=== PATIENT | male | born 1955 | race Caucasian/White ===

== ENCOUNTER 2017-05-16 08:46 | Inpatient (IN) ==
[2017-05-12 13:04] LABS: Appearance,Urine CLEAR; Bilirubin,Urine NEG (NEG); Color,Urine YELLOW; Glucose,Urine (UA) NEGATIVE (NEG); Leukocyte Esterase,Urine NEG /uL (NEG); Protein,Urine NEG (NEG); Specific Gravity,Urine 1.026 (1.000-1.035); Urine Blood NEG mg/dL (<0.03); Urobilinogen,Urine NEG (NEG)
[2017-05-12 14:02] LABS: Blood Urea Nitrogen 24 mg/dl (8-23)
[2017-05-12 14:07] LABS: Basophils # (Auto) 0 K/mcL (0.0-0.3); Basophils % (Auto) 0.2 % (0.0-2.0); Eosinophils # (Auto) 0 K/mcL (0.0-0.7); Eosinophils % (Auto) 0.4 % (0.0-7.0); Granulocytes % (Auto) 88.6 % (38.0-78.0); Lymphocytes % (Auto) 8.7 % (15.5-49.0); Mean Cell Volume 86.1 fL (80.0-100.0); Mean Corpuscular HGB Conc 33.2 g/dL (31.0-36.0); Mean Corpuscular Hemoglobin 28.5 pg (26.0-34.0); Monocytes # (Auto) 0.2 K/mcL (0.1-0.9); Monocytes % (Auto) 2.1 % (1.0-12.0); Platelet Count 224 K/mcL (140-440); RBC 4.74 M/mcL (4.50-5.90); Red Cell Distribution Width 12.7 % (11.5-14.5)
[~2017-05-16 08:46] MED LIST: ACETAMINOPHEN 500 MG TABLET PO SCH; CELECOXIB 200 MG CAPSULE PO SCH; KETOROLAC 30 MG, ROPIVACAINE HCL/PF 49.5 ML, EPINEPHrine 0.5 MG, 0.9 % SODIUM CHLORIDE ... IJ SCH; PREGABALIN 75 MG CAPSULE PO SCH; ceFAZolin 1 GM VIAL IV SCH; oxyCODONE 10 MG TAB.ER.12H PO SCH
[2017-05-16] MEDS ORDERED: ePHEDrine 50 MG/ML AMPUL IV ONE (14:25)
[2017-05-16] MEDS ORDERED: PROPOFOL 200 MG/20 ML VIAL IV ONE (14:25)
[2017-05-16] MEDS ORDERED: KETOROLAC 30 MG/ML VIAL IV ONE (14:25)
[2017-05-16] MEDS ORDERED: ONDANSETRON 4 MG/2 ML VIAL IV ONE (14:25)
[2017-05-16] MEDS ORDERED: GLYCOPYRROLATE 0.2 MG/ML VIAL IV ONE (14:25)
[2017-05-16] MEDS ORDERED: LIDOCAINE HCL/PF 100 MG/5 ML SYRINGE IV ONE (14:25)
[2017-05-16] MEDS ORDERED: DEXAMETHASONE 10 MG/ML VIAL IV ONE (14:25)
[2017-05-16] MEDS ORDERED: BUPIVACAINE W/EPI 0.5% 50 ML VIAL IJ ONE (14:25)
[2017-05-16] MEDS ORDERED: KETAMINE 100 MG/ML ML IV ONE (14:25)
[2017-05-16] MEDS ORDERED: TRANEXAMIC ACID 1,000 MG/10 ML VIAL IV ONE (14:25)
[2017-05-16] MEDS ORDERED: MIDAZOLAM 2 MG/2 ML VIAL IV ONE (14:25)
[2017-05-16] MEDS ORDERED: METHOCARBAMOL 1,000 MG/10 ML VIAL IV PRN (14:52)
[2017-05-16] MEDS ORDERED: FLUMAZENIL 0.1 MG/ML ML IV PRN (14:52)
[2017-05-16] MEDS ORDERED: LACTATED RINGERS 250 ML IV PRN (14:52)
[2017-05-16] MEDS ORDERED: NALOXONE HCL 0.4 MG/ML VIAL IV PRN (14:52)
[2017-05-16] MEDS ORDERED: ONDANSETRON 4 MG/2 ML VIAL IV PRN ×2 (14:52→15:55)
[2017-05-16] MEDS ORDERED: PROMETHAZINE 25 MG/ML VIAL IV PRN (14:52)
[2017-05-16] MEDS ORDERED: IPRATROPIUM/ALBUTEROL 3 ML AMPUL.NEB NEB PRN (14:52)
[2017-05-16] MEDS ORDERED: BENZOCAINE/MENTHOL 1 LOZENGE PO PRN ×2 (14:52→15:55)
[2017-05-16] MEDS ORDERED: LACTATED RINGERS 1,000 ML IV SCH (15:00)
[2017-05-16] MEDS ORDERED: BISACODYL 10 MG SUPP.RECT PR PRN (15:55)
[2017-05-16] MEDS ORDERED: HYDROmorphone 2 MG/ML VIAL IV PRN (15:55)
[2017-05-16] MEDS ORDERED: FLEETS ADULT ENEMA PR PRN (15:55)
[2017-05-16] MEDS ORDERED: TRANEXAMIC ACID 1,000 MG/10 ML VIAL IV SCH (15:55)
[2017-05-16] MEDS ORDERED: ACETAMINOPHEN 325 MG TABLET PO PRN (15:55)
[2017-05-16] MEDS ORDERED: POLYETHYLENE GLYCOL 3350 17 GM PACKET PO PRN (15:55)
[2017-05-16] MEDS ORDERED: MAGNESIUM HYDROXIDE 30 ML ORAL.SUSP PO PRN (15:55)
--- NOTE | 2017-05-16 16:02 | Brief Operative Note ---
Date of procedure: 05/16/17 Pre-op diagnosis: Left knee djd Post-op diagnosis: same Procedure: left tka robotic Grafts/Implants: Yes Anesthesia: DAVID Surgeon: Jaylan Villalpando Automation And Controls Manager: Onesimo Downs Estimated blood loss (cc): 50 Tourniquet Time (Minutes): 59 Specimens Removed/Pathology: none sent Condition: stable Disposition: PACU
[2017-05-16] MEDS: fentaNYL 100 MCG/2 ML VIAL IV PRN ×3 (16:40→16:59)
[2017-05-16] MEDS ORDERED: fentaNYL 100 MCG/2 ML VIAL IV ONE (16:48)
[2017-05-16] MEDS: 0.45 % SODIUM CHLORIDE 1,000 ML IV SCH (17:28)
[2017-05-16] MEDS: KETOROLAC 15 MG/ML VIAL IV SCH (17:32)
--- NOTE | 2017-05-16 17:36 | XRay Report ---
CLINICAL INFORMATION: Reason for Exam:Post-Op Total Knee COMPARISON: None. FINDINGS: Total knee prostheses is anatomically aligned. No osseous abnormality. Periarticular gas and soft tissue are seen - as expected IMPRESSION: Negative Interpreted and Authenticated by: Chay Lino 05/16/17
[2017-05-16] MEDS: HYDROcodone/APAP 10/325MG TABLET PO PRN (19:24)
[2017-05-16] MEDS ORDERED: QUEtiapine 25 MG TABLET PO SCH (21:00)
[2017-05-16] MEDS ORDERED: SENNOSIDES 1 TABLET PO SCH (21:00)
[2017-05-16] MEDS ORDERED: PRAZOSIN 1 MG CAPSULE PO SCH (21:00)
[2017-05-16] MEDS: ASPIRIN 325 MG ENTERIC COATED TABLET PO SCH (22:35)
[2017-05-16] MEDS: DOCUSATE SODIUM 100 MG CAPSULE PO SCH (22:35)
[2017-05-16] MEDS: DIAZEPAM 5 MG TABLET PO SCH (22:36)
[2017-05-16] MEDS: 0.9 % SODIUM CHLORIDE 10 ML SYRINGE IV SCH (22:40)
[2017-05-17] MEDS: KETOROLAC 15 MG/ML VIAL IV SCH ×3 (00:30→16:33)
[2017-05-17] MEDS: 0.45 % SODIUM CHLORIDE 1,000 ML IV SCH ×2 (02:18→11:23)
[2017-05-17] MEDS: HYDROcodone/APAP 10/325MG TABLET PO PRN ×2 (03:41→09:49)
[2017-05-17] MEDS: 0.9 % SODIUM CHLORIDE 10 ML SYRINGE IV SCH (05:54)
--- NOTE | 2017-05-17 07:09 | Operative Note ---
DATE OF OPERATION: 05/16/2017 PREOPERATIVE DIAGNOSIS: Left knee degenerative arthritis, severe. POSTOPERATIVE DIAGNOSIS: Left knee degenerative arthritis, severe. PROCEDURE: Left robotic total knee arthroplasty. SURGEON: Jaylan Villalpando MD CHEMICAL MAKER: Onesimo Downs PA-C ANESTHESIA: General LMA anesthesia. COMPLICATIONS: None. TOTAL TOURNIQUET TIME: 59 minutes. DESCRIPTION OF PROCEDURE: The patient was brought to the operating room and put to sleep with general LMA anesthesia. Once asleep, the patient had the left leg sterilely prepped and draped in the usual sterile fashion. Once done, the patient had a timeout performed and we confirmed the operative site and location. Preop antibiotics, tranexamic acid had all been given. The patient then had a midline incision, a mid vastus approach performed after elevating the tourniquet to 250 pounds of pressure. Once done, we then exposed the joint showing severe valgus malaligned knee with severe posterior lateral wear. Once this was confirmed, we then proceeded with a total knee arthroplasty. We placed pins above and below the knee, registered center of hip rotation and registered the medial and lateral malleolus, registered intra-articular pins and 30 points on the femur and tibia. We balanced the knee at 90 and 15 degrees. Once we perfectly balanced the knee by adjusting the implants we then brought in the robot, made our tibial cut anterior and posterior cuts on the femur, anterior chamfer cut. We changed a saw blade and made our distal femoral cut and posterior chamfer cuts. Once all this was done, we then removed the bony fragments, removed the remnants of the meniscus and then tapped into place the tibial baseplate, which was set with rotation assisted by the robot. Once done, we then placed the femoral component as far lateral as possible tapping into place. We then placed a 9 mm poly. This seemed to fit very well, slightly tight posterolaterally, which was consistent with arthritis in this region. The posterolateral corner was a little tight. We then elevated the popliteus slightly posterolaterally to balance knee perfectly. Once perfectly balanced, we irrigated thoroughly and preserved the PCL. We placed a standard poly liner. The patella was measured at 24 mm in total thickness. We cut the patella to 14 mm and then placed a 33 mm patellar button. There was no complication. This is all fit very nicely and the patella tracked near anatomically. We irrigated thoroughly and then cemented into place the above-mentioned sizes. Excess cement was removed. We kept the knee at 45 degrees and then rechecked for range of motion and balance after the cement had dried. We then closed the mid vastus approach with #1 Stratafix x2 stitches and we closed the skin with 2-0 Vicryl and adhesive closure. The patient tolerated this well. There was no complication. We irrigated thoroughly and placed a sterile bandage. Tourniquet deflated at 59 minutes. RBImer:bhargavi Job ID: [id number] Doc ID: [id number] Jaylan Villalpando MD
[2017-05-17] MEDS ORDERED: OMEPRAZOLE 20 MG CAPSULE PO SCH (07:30)
--- NOTE | 2017-05-17 07:40 | Discharge Summary ---
Ortho Discharge - TKA - Patient Instructions Diet: Regular Diet Activity: activity as tolerated, weight bearing as tolerated Total Knee Protocol: For Total Knee: Start ROM MALINA with stationary bike or rocking chair. Work on gaining full extension of knee. Posterior dislocation precautions provided. Hip abductor strengthening and gait training instructions provided. Apply Cryocuff as instructed. Dressing Care: May shower in 2 days, Aquacel Ag - leave on for 5 days - Follow Up Plan Disposition: Home, Self-Care Prognosis: Good Rehab Potential: Good I certify that the patient requires SNF services: No Overall status at discharge: patient is progressing back to baseline - Orders For Discharge Prescriptions: Aspirin [Ecotrin] 325 mg PO BID #60 tab.ec Docusate Sodium [Colace] 100 mg PO BID #75 cap HYDROcodone/APAP 10/325MG [[place] 10/325Mg] 1 - 2 tab PO Q4HP PRN #75 tab PRN Reason: Pain Level 3-6
--- NOTE | 2017-05-17 07:42 | Orthopedic Progress Note ---
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 Chief Complaint: [Pt is stable this morning on post operative day 1 without any significant concerns or complaints. Patients vital signs have remained stable. Patients dressing is dry and is grossly instact from a neurovascular and motor standpoint. Patients 10 point ROS is otherwise negative. ] Objective Vital signs: Vital Signs Temp Pulse Resp BP Pulse Ox 05/17/17 07:09 97.4 F 68 14 122/74 98 05/17/17 03:30 98.4 F 81 16 125/79 94 05/17/17 00:05 97.5 F 75 16 132/84 97 05/16/17 22:30 97.6 F 91 H 16 143/76 100 05/16/17 20:25 97.8 F 97 H 16 130/86 93 05/16/17 19:15 95 H 159/81 05/16/17 18:45 92 H 130/86 05/16/17 18:14 88 16 161/88 99 05/16/17 17:58 86 16 161/88 100 05/16/17 17:43 86 16 164/104 100 05/16/17 17:28 97.2 F 93 H 16 159/97 100 05/16/17 17:02 97.9 F 86 12 174/99 100 05/16/17 16:47 87 15 158/96 97 05/16/17 16:32 97.9 F 90 13 166/103 98 05/16/17 16:28 93 H 18 155/96 100 05/16/17 16:23 93 H 18 163/82 100 05/16/17 16:18 97.6 F 86 15 159/88 96 05/16/17 08:46 97.9 F 86 16 165/96 99 Intake and Output 05/16/17 05/17/17 05/17/17 21:59 05:59 13:59 Intake Total 1740 / 1740 1683 / 1683 Output Total 801 / 801 575 / 575 Balance 939 / 939 1108 / 1108 Intake: IV 883 / 883 Sodium Chloride 0.45% 1,000 ml 883 / 883 @ 100 mls/hr IV .Q10H PEDRO Rx#: [id number] Oral 240 / 240 800 / 800 IV - Manual Only 1500 / 1500 Output: Urine Catheter Amount 700 / 700 Void Amount 575 / 575 # of times incontinent of urine 1 / Estimated Blood Loss 100 / 100 Other: Meal jello Percent of Meal Consumed 100% Feeding Ability Independent # Voids 1 Weight 165 lb 8 oz Intake & Output: Intake & Output 05/16/17 05/17/17 05/17/17 21:59 05:59 13:59 Intake Total 1740 / 1740 1683 / 1683 Output Total 801 / 801 575 / 575 Balance 939 / 939 1108 / 1108 Weight 165 lb 8 oz Intake: IV 883 / 883 Sodium Chloride 0.45% 1,000 ml 883 / 883 @ 100 mls/hr IV .Q10H PEDRO Rx#: [id number] Oral 240 / 240 800 / 800 IV - Manual Only 1500 / 1500 Output: Urine Catheter Amount 700 / 700 Void Amount 575 / 575 # of times incontinent of urine 1 / Estimated Blood Loss 100 / 100 Other: Meal jello Percent of Meal Consumed 100% Feeding Ability Independent # Voids 1 Incision: Yes healing Dressing: Yes clean, Yes dry Weight bearing status: full Neurological exam IM: Yes oriented X3, Yes motor sensory intact, Yes neurovascular intact Extremities exam IM: Yes Foot pink and warm, Yes neurovascular intact - Labs CBC & BMP: 05/17/17 04:35 05/12/17 11:04 Labs: Orthopedic Labs 05/12/17 11:04 PT 12.2 INR 0.9 APTT 25 05/17/17 05/12/17 04:35 11:04 Hgb 13.5 Hct 36.7 L 40.8 L Assessment and Plan (1) Hx of total knee arthroplasty The patient has been educated regarding dressing care, Physical Therapy recommendations, home exercises, restrictions, and follow up appointments. The patient has had all necessary DME prescribed. The patient has remained stable during their hospital course. The patient was discharge with a stable exam. Leave Dermabond patch intact until followup Status: Acute
[2017-05-17] MEDS ORDERED: PREDNISONE 50 MG PO SCH (08:00)
[2017-05-17] MEDS ORDERED: DEXTROAMPHETAMINE SULFATE 15 MG PO SCH (08:00)
[2017-05-17] MEDS: ASPIRIN 325 MG ENTERIC COATED TABLET PO SCH (08:23)
[2017-05-17] MEDS: DIAZEPAM 5 MG TABLET PO SCH (08:23)
[2017-05-17] MEDS: DOCUSATE SODIUM 100 MG CAPSULE PO SCH (08:23)
[2017-05-17] MEDS ORDERED: CETIRIZINE 10 MG TABLET PO SCH (09:00)
[2017-05-17] MEDS ORDERED: KETOCONAZOLE 2% TOP CRM 15GM TUBE TOPICAL SCH (09:00)
[2017-05-17] MEDS ORDERED: amLODIPine 10 MG TABLET PO SCH (09:00)
== END 2017-05-17 14:25 | disposition home or self-care (01) | DRG 470 ==
LOC: MEDSUR 08:46
PROVIDERS: ADMIT Orthopaedic Surgery; ATTEND Orthopaedic Surgery

== ENCOUNTER 2018-04-24 09:42 | Inpatient (IN) ==
[2018-04-19 13:48] LABS: Appearance,Urine CLEAR; Bilirubin,Urine NEG (NEG); Color,Urine YELLOW; Glucose,Urine (UA) NEGATIVE (NEG); Leukocyte Esterase,Urine NEG /uL (NEG); Protein,Urine NEG (NEG); Specific Gravity,Urine 1.013 (1.000-1.035); Urine Blood NEG mg/dL (<0.03); Urobilinogen,Urine NEG (NEG)
[2018-04-19 14:08] LABS: Basophils # (Auto) 0 K/mcL (0.0-0.3); Basophils % (Auto) 0.4 % (0.0-2.0); Eosinophils # (Auto) 0.2 K/mcL (0.0-0.7); Granulocytes % (Auto) 53.8 % (38.0-78.0); Lymphocytes # (Auto) 2.2 K/mcL (1.5-4.8); Lymphocytes % (Auto) 35.1 % (15.5-49.0); Mean Cell Volume 88.6 fL (80.0-100.0); Mean Corpuscular HGB Conc 33.6 g/dL (31.0-36.0); Monocytes # (Auto) 0.5 K/mcL (0.1-0.9); Monocytes % (Auto) 7.7 % (1.0-12.0); Platelet Count 226 K/mcL (140-440); RBC 5.05 M/mcL (4.50-5.90); Red Cell Distribution Width 12.9 % (11.5-14.5)
[2018-04-19 14:35] LABS: Blood Urea Nitrogen 13 mg/dl (8-23)
[~2018-04-24 09:42] MED LIST changes: +0.9 % SODIUM CHLORIDE 9 ML, KETOROLAC 30 MG, ROPIVACAINE HCL/PF 49.5 ML, EPINEPHrine 0.... IJ SCH; -KETOROLAC 30 MG, ROPIVACAINE HCL/PF 49.5 ML, EPINEPHrine 0.5 MG, 0.9 % SODIUM CHLORIDE ... IJ SCH
[2018-04-24] MEDS ORDERED: GENTAMICIN SULFATE 800 MG/20 ML VIAL IR ONE (15:40)
[2018-04-24] MEDS ORDERED: ONDANSETRON 4 MG/2 ML VIAL IV PRN ×2 (16:12→16:15)
[2018-04-24] MEDS ORDERED: IPRATROPIUM/ALBUTEROL 3 ML AMPUL.NEB NEB PRN (16:12)
[2018-04-24] MEDS ORDERED: fentaNYL 100 MCG/2 ML VIAL IV PRN (16:12)
[2018-04-24] MEDS ORDERED: METHOCARBAMOL 1,000 MG/10 ML VIAL IV PRN (16:12)
[2018-04-24] MEDS ORDERED: LACTATED RINGERS 1,000 ML IV SCH (16:15)
[2018-04-24] MEDS ORDERED: HYDROcodone/APAP 10/325MG TABLET PO PRN (16:15)
[2018-04-24] MEDS ORDERED: HYDROmorphone 2 MG/ML VIAL IV PRN (16:15)
[2018-04-24] MEDS ORDERED: TRANEXAMIC ACID 1,000 MG/10 ML VIAL IV SCH (16:15)
[2018-04-24] MEDS ORDERED: FLEETS ADULT ENEMA PR PRN (16:15)
[2018-04-24] MEDS ORDERED: BISACODYL 10 MG SUPP.RECT PR PRN (16:15)
[2018-04-24] MEDS ORDERED: POLYETHYLENE GLYCOL 3350 17 GM PACKET PO PRN (16:15)
[2018-04-24] MEDS ORDERED: ACETAMINOPHEN 325 MG TABLET PO PRN (16:15)
[2018-04-24] MEDS ORDERED: MAGNESIUM HYDROXIDE 30 ML ORAL.SUSP PO PRN (16:15)
[2018-04-24] MEDS ORDERED: BENZOCAINE/MENTHOL 1 LOZENGE PO PRN (16:15)
--- NOTE | 2018-04-24 16:15 | Brief Operative Note ---
Date of procedure: 04/24/18 Pre-op diagnosis: left knee arthrofibrosis Post-op diagnosis: same Procedure: left knee open synocectomy and scare tissue removal and revision of the poly liner and release of the pcl ligament Anesthesia: GETA Complications: none Surgeon: Jaylan Villalpando Cissp: Onesimo Downs Estimated blood loss (cc): 50 Tourniquet Time (Minutes): 30 Specimens Removed/Pathology: none sent Condition: stable Disposition: PACU
[2018-04-24] MEDS ORDERED: DOCUSATE SODIUM 100 MG CAPSULE PO PRN (16:18)
[2018-04-24] MEDS ORDERED: ALBUTEROL SULFATE 1 PUFF INHALER INH PRN (16:18)
[2018-04-24] MEDS ORDERED: PROMETHAZINE 25 MG TABLET PO PRN (16:18)
--- NOTE | 2018-04-24 16:51 | Operative Note ---
DATE OF OPERATION: 04/24/2018 PREOPERATIVE DIAGNOSIS: Left knee adhesions and contracture. POSTOPERATIVE DIAGNOSIS: Left knee adhesions and contracture. PROCEDURE: Soft tissue and scar tissue removal and release of his PCL, as well as a poly liner revision from a standard poly to a PCL or a deep-dished poly. SURGEON: Jaylan Villalpando M.D. ROOFING CONTRACTOR: Onesimo Downs PA-C. ANESTHESIA: General LMA anesthesia. COMPLICATIONS: None. WEB SYSTEMS DEVELOPER: Tomas Winters M.D. TOURNIQUET TIME: 30 minutes. ESTIMATED BLOOD LOSS: About 50 mL. DESCRIPTION OF PROCEDURE: The patient was brought to the operating room and put to sleep with general LMA anesthesia. A timeout was performed. We confirmed the left leg as the operative site. We placed Ioban over the skin and after the timeout and confirming the operative site, we proceeded with the case. We made an incision through the prior scar anterior medially and evaluated the knee. Inside it was quite evident after performing a midvastus approach that his medial and lateral gutters were completely scarred in. These were recreated using a Bovie and an osteotome. I then identified the anterior pouch. This also was scarred completely in which restricted the movement of the quad tendon. The pouch was recreated anteriorly, and then at this point we took the knee through motion. Patient easily went to about 110 degrees but was quite tight. At this point, we then proceeded with release of the PCL. PCL was released and then this gave full motion. Once done, we then converted the patient from a standard poly 9 mm thick to a 9 mm deep dish for PCL retention. Once this was in place, this balanced the knee perfectly and patient received full motion. We irrigated thoroughly, deflated the tourniquet at approximately 30 minutes, and we controlled bleeding with the Bovie. We thoroughly irrigated the knee, and we sent a soft tissue sample of the synovium anteriorly to the lab. I also then used the Bovie to decrease nerve innervation and pain control to the capsule on the superior genicular nerve, both medial and laterally was identified, and then we used the Bovie to Bovie this. We irrigated thoroughly and injected the soft tissues with a post-inject formula. The patient tolerated this well. There were no complications. We irrigated thoroughly. We closed the capsule with a #1 Stratafix x2 sutures and closed the skin with 2-0 Vicryl and an adhesive closure. The patient then had the knee re-manipulated achieving full motion. The patient tolerated this well. There was no complication. RBH:elkin Job ID: [id number] Doc ID: [id number] Jaylan Winters MD
--- NOTE | 2018-04-24 17:03 | XRay Report ---
CLINICAL INFORMATION: Post-Op Total Knee COMPARISON: None. FINDINGS: Total knee prostheses is anatomically aligned. No osseous abnormalities. Soft tissues are normal. IMPRESSION: Negative Interpreted and Authenticated by: Chay Lino 04/24/18
[2018-04-24] MEDS ORDERED: PROMETHAZINE 25 MG/ML VIAL ONE (17:14)
[2018-04-24] MEDS ORDERED: PROMETHAZINE 25 MG/ML VIAL IV ONE (17:17)
[2018-04-24] MEDS: 0.45 % SODIUM CHLORIDE 1,000 ML IV SCH (17:42)
[2018-04-24] MEDS: KETOROLAC 15 MG/ML VIAL IV SCH (17:43)
[2018-04-24] MEDS: ASPIRIN 325 MG ENTERIC COATED TABLET PO SCH (20:42)
[2018-04-24] MEDS: DOCUSATE SODIUM 100 MG CAPSULE PO SCH (20:42)
[2018-04-24] MEDS: oxyCODONE/APAP 5/325MG TABLET PO PRN (20:42)
[2018-04-24] MEDS: 0.9 % SODIUM CHLORIDE 10 ML SYRINGE IV SCH (20:43)
[2018-04-24] MEDS: KETOCONAZOLE 2% TOP CRM 15GM TUBE TOPICAL SCH (20:43)
[2018-04-24] MEDS ORDERED: QUEtiapine 25 MG TABLET PO SCH (21:00)
[2018-04-24] MEDS ORDERED: TEMAZEPAM 15 MG CAPSULE PO PRN (21:00)
[2018-04-24] MEDS ORDERED: DIAZEPAM 5 MG TABLET PO SCH (21:00)
[2018-04-24] MEDS ORDERED: SENNOSIDES 1 TABLET PO SCH (21:00)
[2018-04-24] MEDS: ceFAZolin 1 GM VIAL IV SCH (22:38)
[2018-04-25] MEDS: 0.9 % SODIUM CHLORIDE 10 ML SYRINGE IV SCH ×2 (03:27→05:05)
[2018-04-25] MEDS: 0.45 % SODIUM CHLORIDE 1,000 ML IV SCH (03:27)
[2018-04-25] MEDS: KETOROLAC 15 MG/ML VIAL IV SCH ×3 (05:05→12:05)
[2018-04-25] MEDS: ceFAZolin 1 GM VIAL IV SCH (07:18)
--- NOTE | 2018-04-25 07:48 | Orthopedic Progress Note ---
Subjective Patient information: Note initiated : 04/25/18 at 7:47 am Service Date, if different from initiated Date: [] Patient: Bartolome Garcia 62 y/o M admitted on 04/24/18 for Left Knee Revision of Polyliner and Posterior. Chief Complaint: [Pt is stable this morning on post operative day 1 without any significant concerns or complaints. Patients vital signs have remained stable. Patients dressing is dry and is grossly intact from a neur ovascular and motor standpoint. Patients 10 point ROS is otherwise negative. ] Objective Vital signs: Vital Signs Temp Pulse Resp BP BP Pulse Ox 04/25/18 06:38 97.9 F 62 16 100/67 94 04/25/18 04:00 96 04/25/18 03:25 97.4 F 65 12 101/63 96 04/25/18 00:00 93 04/24/18 22:40 98.0 F 81 12 112/72 92 04/24/18 21:39 76 130/76 93 04/24/18 20:40 84 119/82 97 04/24/18 20:15 97 04/24/18 19:40 88 122/85 96 04/24/18 19:09 84 139/87 99 04/24/18 18:40 91 H 148/81 98 04/24/18 18:24 93 H 147/92 04/24/18 18:09 83 147/90 97 04/24/18 17:55 88 146/87 97 04/24/18 17:39 81 138/94 04/24/18 17:32 97.9 F 83 13 145/82 100 04/24/18 17:20 85 14 140/76 100 04/24/18 17:10 83 18 138/84 100 04/24/18 17:00 82 15 142/84 100 04/24/18 16:50 90 14 142/79 98 04/24/18 16:45 96 H 14 134/77 96 04/24/18 16:40 95 H 17 134/73 100 04/24/18 16:35 97.4 F 97 H 15 138/85 100 04/24/18 10:33 98.2 F 83 16 134/88 97 04/24/18 09:42 18 Intake and Output 04/24/18 04/25/18 04/25/18 21:59 05:59 13:59 Intake Total 1800 / 3175 1375 / 3175 Output Total 850 / 850 Balance 1800 / 2325 525 / 2325 Intake: IV 975 / 975 Sodium Chloride 0.45% 1,000 ml 975 / 975 @ 100 mls/hr IV .Q10H PEDRO Rx#: [id number] Oral 550 / 950 400 / 950 IV - Manual Only 1250 / 1250 Output: Void Amount 850 / 850 Other: Urine Appearance Clear Clear Urine Color Pale Bright Yellow Urine Odor Normal Normal Weight 176 lb 8 oz Intake & Output: Intake & Output 04/24/18 04/25/18 04/25/18 21:59 05:59 13:59 Intake Total 1800 / 3175 1375 / 3175 Output Total 850 / 850 Balance 1800 / 2325 525 / 2325 Weight 176 lb 8 oz Intake: IV 975 / 975 Sodium Chloride 0.45% 1,000 ml 975 / 975 @ 100 mls/hr IV .Q10H PEDRO Rx#: [id number] Oral 550 / 950 400 / 950 IV - Manual Only 1250 / 1250 Output: Void Amount 850 / 850 Other: Urine Appearance Clear Clear Urine Color Pale Bright Yellow Urine Odor Normal Normal Incision: Yes healing Incision clean and dry: Yes Dressing: Yes clean, Yes dry Weight bearing status: full Neurological exam IM: Yes motor sensory intact, Yes neurovascular intact Extremities exam IM: Yes normal inspection, Yes neurovascular intact - Labs CBC & BMP: 04/25/18 05:29 04/19/18 11:48 Labs: Orthopedic Labs 04/19/18 10:54 PT 13.0 INR 1.0 APTT 30 04/25/18 04/19/18 05:29 10:54 Hgb 15.1 Hct 36.6 L 44.8 Assessment and Plan (1) History of revision of total knee arthroplasty The patient has been educated regarding dressing care, Physical Therapy re commendations, home exercises, restrictions, and follow up appointments. The patient has had all necessary DME prescribed. The patient has remained relatively stable during their hospital course. Leave Dermabond patch intact until followup Status: Acute
--- NOTE | 2018-04-25 07:51 | Discharge Summary ---
Ortho Discharge - TKA - Patient Instructions Diet: Regular Diet Activity: activity as tolerated, weight bearing as tolerated Total Knee Protocol: For Total Knee: Start ROM MALINA with stationary bike or rocking chair. Work on gaining full extension of knee. Posterior dislocation precautions provided. Hip abductor strengthening and gait training instructions provided. Apply Cryocuff as instructed. Dressing Care: May shower in 2 days - Problem Maintenance (1) History of revision of total knee arthroplasty Status: Acute - Follow Up Plan Follow Up Appointments: Onesimo Downs PA-C [Physician Tape Recorder Repairer] - 05/09/18 3:40 pm Disposition: Home, Self-Care Prognosis: Good Rehab Potential: Good I certify that the patient requires SNF services: No Overall status at discharge: patient is progressing back to baseline - Orders For Discharge Prescriptions: Aspirin [Ecotrin] 325 mg PO BID #60 tab.ec Docusate Sodium [Colace] 100 mg PO BID #60 capsule oxyCODONE/APAP [Percocet 5-325 mg] 1 - 2 tab PO Q4HP PRN #75 tab PRN Reason: Pain Level 3-6
[2018-04-25] MEDS: DOCUSATE SODIUM 100 MG CAPSULE PO SCH (08:02)
[2018-04-25] MEDS: DEXTROAMPHETAMINE SULFATE 15 MG PO SCH ×2 (08:02→12:05)
[2018-04-25] MEDS: ASPIRIN 325 MG ENTERIC COATED TABLET PO SCH (08:02)
[2018-04-25] MEDS: KETOCONAZOLE 2% TOP CRM 15GM TUBE TOPICAL SCH (08:02)
[2018-04-25] MEDS ORDERED: amLODIPine 10 MG TABLET PO SCH (09:00)
[2018-04-25] MEDS ORDERED: DIAZEPAM 5 MG TABLET PO SCH (09:00)
[2018-04-25] MEDS: oxyCODONE/APAP 5/325MG TABLET PO PRN (09:26)
--- NOTE | 2018-04-25 11:18 | Surgical Pathology Report ---
HISTOLOGY SPECIMEN MICROSCOPIC DIAGNOSIS SOFT TISSUE, LEFT KNEE SUPERIOR POUCH, BIOPSY: -- FIBROUS SOFT TISSUE AND SYNOVIUM WITH MILD CHRONIC INFLAMMATION. -- NO SIGNIFICANT NEUTROPHILIC INFLAMMATION IDENTIFIED (LESS THAN ONE NEUTROPHIL/hpf). (DMT:adj) INTRAOPERATIVE CONSULTATION FROZEN SECTION DIAGNOSIS (Performed at [facility], [place], [place]) SOFT TISSUE, SUPERIOR POUCH, EXCISION: -- LESS THAN ONE NEUTROPHIL/hpf. (DMT:sln) GROSS DESCRIPTION Received fresh for frozen section consultation, labeled superior pouch, is a 3 x 1.2 x 0.7 cm crowley soft tissue fragment. The fragment is serially sectioned, entirely submitted for frozen section consultation and resubmitted as FSA. (DMT:sln) Electronically Signed by: Truong Peters M.D.
[2018-04-25] MEDS ORDERED: KETAMINE 100 MG/ML ML IV ONE (15:15)
[2018-04-25] MEDS ORDERED: ONDANSETRON 4 MG/2 ML VIAL IV ONE (15:15)
[2018-04-25] MEDS ORDERED: MIDAZOLAM 2 MG/2 ML VIAL IV ONE (15:15)
[2018-04-25] MEDS ORDERED: GLYCOPYRROLATE 0.2 MG/ML VIAL IV ONE (15:15)
[2018-04-25] MEDS ORDERED: PROPOFOL 200 MG/20 ML VIAL IV ONE (15:15)
[2018-04-25] MEDS ORDERED: TRANEXAMIC ACID 1,000 MG/10 ML VIAL IV ONE (15:15)
[2018-04-25] MEDS ORDERED: LIDOCAINE HCL/PF 100 MG/5 ML SYRINGE IV ONE (15:15)
[2018-04-25] MEDS ORDERED: PHENYLEPHRINE 10 MG/ML VIAL IV ONE (15:15)
== END 2018-04-25 14:35 | disposition home or self-care (01) | DRG 489 ==
LOC: MEDSUR 09:42
PROVIDERS: ADMIT Orthopaedic Surgery; ATTEND Orthopaedic Surgery

== ENCOUNTER 2021-07-17 06:08 | Inpatient (IN) ==
--- NOTE | 2021-07-15 17:55 | EKG ---
[facility] Test Date: 2021-07-15 Pat Name: Bartolome Garcia Department: [facility] Room: Gender: Male Space Scheduler: 878 : 1955 Requested By: Mikal Paulson Order Number: [id number] Reading MD: Yadira Salazar D.O. Measurements Intervals [place] Rate: 83 P: 67 NH: 169 QRS: -41 QRSD: 97 T: 81 QT: 409 QTc: 481 Interpretive Statements Sinus rhythm Left anterior fascicular block Borderline prolonged QT interval Electronically Signed On 07-15-2021 17:55:34 PDT by Yadira Salazar D.O. /[id number]
[2021-07-15 19:21] LABS: Basophils # (Auto) 0.05 K/mcL (0.00-0.30); Basophils % (Auto) 0.7 % (0.0-2.0); Eosinophils # (Auto) 0.17 K/mcL (0.00-0.70); Eosinophils % (Auto) 2.4 % (0.0-7.0); Hematocrit 43.3 % (40.1-51.0); Hemoglobin 13.9 g/dL (13.7-17.5); Lymphocytes # (Auto) 2.23 K/mcL (1.50-4.80); Lymphocytes % (Auto) 31.1 % (15.5-49.0); Mean Cell Volume 85.7 fL (80.0-100.0); Mean Corpuscular HGB Conc 32.1 g/dL (31.0-36.0); Mean Platelet Volume 10.2 fL (7.4-10.4); Monocytes # (Auto) 0.55 K/mcL (0.10-0.90); Monocytes % (Auto) 7.7 % (1.0-12.0); Neutrophils % (Auto) 58.1 % (38.0-78.0); Platelet Count 283 K/mcL (140-440); RBC 5.05 M/mcL (4.63-6.08); Red Cell Distribution Width 13.8 % (11.5-14.5); WBC 7.2 K/mcL (4.5-11.0)
[2021-07-15 19:31] LABS: Blood Urea Nitrogen 13 mg/dL (8-23); Calcium 9.9 mg/dL (8.6-10.4); Carbon Dioxide 25 mmol/L (22-30); Chloride 102 mmol/L (96-108); Glomerular Filtration Rate 63; Glucose 110 mg/dL (70-105)
[2021-07-15 20:55] LABS: Appearance,Urine CLEAR (Clear); Bilirubin,Urine Negative (Negative); Color,Urine YELLOW; Culture Indicated,Urine No; Glucose,Urine (UA) Negative (Negative); Ketones,Urine Negative (Negative); Leukocyte Esterase,Urine Negative /uL (Negative); Nitrate,Urine Negative (Negative); Protein,Urine Negative (Negative); Specific Gravity,Urine 1.017 (1.000-1.035); Urine Blood Negative (Negative); Urobilinogen,Urine Negative
[~2021-07-17 06:08] MED LIST changes: +IPRATROPIUM/ALBUTEROL 3 ML AMPUL.NEB NEB PRN; +SCOPOLAMINE 1 PATCH PATCH TOPICAL PRN; -ceFAZolin 1 GM VIAL IV SCH; +ceFAZolin 2 GM in DEXTROSE 5% IN WATER 50 ML IV SCH
--- OUTSIDE RECORDS SUMMARY | 2021-07-17 06:11 | External Medical Summary ---
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 Referring Provider [phone] DANIEL FABIAN PA-C Primary Care Provider [phone] Allergies Code Code System Name Reaction Severity Status Onset Meperidine Hcl Anaphylaxis Fatal Active 22326 RxNorm Adderall Other Active 3355 RxNorm Diclofenac Hives Moderate Active 9391 RxNorm Hydrocodone Other Moderate to Active Severe Notes: 04/15/21 verified with pt/ADH Medications Name Status Start Date Stop Date albuterol sulfate HFA 90 mcg/actuation aerosol Active Not available inhaler amlodipine 10 mg tablet Active Not avai lable amlodipine 5 mg tablet Completed 6 Amphetamine Salt Combo 20 mg tablet Completed 04/23/2015 Take 1 tablet twice a day by oral route for 30 days. atorvastatin 20 mg tablet Active Not av ailable azithromycin 250 mg tablet Completed 08/31 benztropine 1 mg tablet Completed 04/23/19 16 buspirone 10 mg tablet Completed 8 buspirone 15 mg tablet Active Not avail able cephalexin 500 mg capsule Active Not av ailable cetirizine 10 mg tablet Completed 09/08/19 19 Take 1 tablet every day by oral route. chlorhexidine gluconate 0.12 % mouthwash Active Not available ciprofloxacin 500 mg tablet Completed 04/2019 clindamycin HCl 300 mg capsule Completed 0 06/01/2017 clobetasol 0.05 % topical ointment Active Not available APPLY A THIN LAYER TO THE AFFECTED AREA (S) BY TOPICAL ROUTE BID PRN. Do not use for more than 7 consecutive days. clonazepam 1 mg tablet Completed 7 dextroamphetamine ER 15 mg capsule,extended Active Not available release dextroamphetamine ER 5 mg capsule,extended release Completed 05/19/2021 Take one tablet by mouth at 1 pm daily. dextroamphetamine-amphetamine 10 mg tablet Completed 07/13/2017 Take 1 tablet every day by oral route as needed. dextroamphetamine-amphetamine 20 mg tablet Completed 06/01/2017 Take 1 tablet twice a day by oral route. dextroamphetamine-amphetamine ER 10 mg 24hr Completed 06/01/2017 capsule,extend release dextroamphetamine-amphetamine ER 20 mg 24hr Completed 07/13/2017 capsule,extend release diazepam 2 mg tablet Completed 08/31/2016 diazepam 5 mg tablet Active Not availab le diclofenac 1 % topical gel Completed 05/19 doxepin 10 mg capsule Completed 03/29/2018 Flovent HFA 110 mcg/actuation aerosol inhaler Completed 09/07/2018 furosemide 20 mg tablet Completed 10/22/19 18 hydrocodone 10 mg-acetaminophen 325 mg tablet Completed 03/29/2018 hydrocodone 5 mg-acetaminophen 325 mg tablet Completed 11/26/2019 hydrocodone 7.5 mg-acetaminophen 325 mg tablet Completed 12/16/2017 hydroxyzine HCl 25 mg tablet Completed 10/2017 Intuniv ER 1 mg tablet,extended release Completed 01/28/2015 Iron 100 Plus Completed 11/17/2020 Take 200 mg daily ketoconazole 2 % topical cream Completed 0 07/13/2017 Latuda 120 mg tablet Active Not availab le Latuda 20 mg tablet Completed 01/28/2015 Latuda 80 mg tablet Completed 09/07/2018 lidocaine 5 % topical ointment Completed 0 05/19/2021 Apply to affected area twice daily as needed lisinopril 5 mg tablet Completed 6 marijuana Completed 07/13/2017 12/03/2020 ROLL on cream meloxicam 15 mg tablet Completed 6 Milk of Magnesia Completed 10/21/2017 Miralax 17 gram/dose oral powder Active Not available Take 17 g in 8 oz of water or juice once daily as needed for co nstipation. naproxen 500 mg tablet Completed 2 nefazodone 50 mg tablet Completed 04/23/19 16 omeprazole 20 mg capsule,delayed release Completed 12/03/2020 omeprazole 40 mg capsule,delayed release Completed 01/09/2020 oxycodone-acetaminophen 5 mg-325 mg tablet Completed 11/17/2020 potassium chloride ER 20 mEq tablet,extended Completed 10/21/2017 release(part/cryst) prazosin 1 mg capsule Completed 03/29/2018 1 tablet by mouth at bedtime prednisone 10 mg tablet Completed 06/01/19 18 prednisone 20 mg tablet Completed 06/28/19 20 promethazine 25 mg tablet Completed 2020 quetiapine 100 mg tablet Completed 019 quetiapine 200 mg tablet Active Not curtis ilable quetiapine 25 mg tablet Completed 06/28/19 20 TAKE 1 TABLET BY MOUTH EVERY NIGHT AT BEDTIME quetiapine 300 mg tablet Unknown Not curtis ilable quetiapine 50 mg tablet Unknown Not avai lable quetiapine ER 150 mg tablet,extended release 24 hr Completed 06/28/2019 TAKE 1 TABLET BY MOUTH EVERY NIGHT AT BEDTIME quetiapine ER 300 mg tablet,extended release 24 Completed 06/28/2019 hr Qvar 80 mcg/actuation Metered Aerosol oral Completed 05/08/2015 inhaler senna 8.6 mg tablet Completed 12/03/2020 TAKE 2 TABLETS BY MOUTH EVERY DAY BY NEEDED *Please make nicci t before out* Shingrix (PF) 50 mcg/0.5 mL intramuscular Completed 05/19/2021 suspension, kit silver sulfadiazine 1 % topical cream Completed 07/01/2017 sulfamethoxazole 800 mg-trimethoprim 160 mg Active Not available tablet Suprep Bowel Prep Kit 17.5 gram-3.13 gram-1.6 Completed 08/31/2016 gram oral solution Symbicort 80 mcg-4.5 mcg/actuation HFA aerosol Active Not available inhaler Tessalon Perles 100 mg capsule Completed 08/31/2016 Take 1 capsule 3 times a day by oral route as needed. tramadol 50 mg tablet Active Not availa ble tranexamic acid 650 mg tablet Completed trazodone 50 mg tablet Active Not avail able triamcinolone acetonide 0.025 % topical cream Completed 04/16/2021 triamcinolone acetonide 0.5 % topical cream Completed 05/19/2021 triamcinolone acetonide 0.5 % topical ointment Completed 01/20/2016 Vitamin D2 1,250 mcg (50,000 unit) capsule Completed 08/17/2018 Take 1 capsule every week by oral route. Vitamin D3 125 mcg (5,000 unit) tablet Completed 09/07/2018 Take 1 tablet every day by oral route. Vitamin E and K Beautiful Skin oil Completed 06/28/2019 Apply a thin layer on the affected areas once daily as needed. 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 Hyperlipidemia Active 01/21/2016 Lower Respiratory Tract Infection Unknown 02/10/2016 Acute Dermatitis Active 02/10/2016 Easy Bruising Unknown 07/29/2016 Senile Purpura Active 06/01/2017 Allergic Reaction Unknown 06/01/2017 History of Tobacco Use Active 06/01/2017 Chronic Kidney Disease Stage 3 Active 03/30/2018 Mild Persistent Asthma Active 01/09/2020 Chronic Hepatitis C Active Encounter Vitamin D Deficiency Active Encounter Schizoaffective Disorder Active History Anxiety Active History Attention Deficit Hyperactivity Disorder Active History Benign Hypertension Active Encounter Hypertensive Disorder Unknown Encounter Ecchymosis Unknown Encounter Asthma Unknown History Bilateral Inguinal Hernia Active Encoun ter Hernia of Anterior Abdominal Wall Active Encounter Acute Renal Failure Syndrome Unknown Enc ounter Urinary Tract Infectious Disease Unknown Encounter Prostatitis Unknown Encounter Primary Erectile Dysfunction Active Enc ounter Contact Dermatitis Unknown Encounter Osteoarthritis of Knee Active Encounter Altered Mental Status Active Encounter Liver Enzymes Abnormal Unknown Encounter Fracture of Three Ribs Unknown Encounter Superficial Burn of Back (Excluding Buttock) Unknown Encounter Total Knee Replacement Active Suspected COVID-19 Unknown Procedures Date Name Performed by 04/11/2020 Knee Arthroscopy/surgery Information not available Notes: Right 02/10/2020 Total Replacement of Left Knee Joint Inf ormation not available 10/01/2019 Total Replacement of Right Knee Joint In formation not available 05/16/2017 Knee Surgery Information not avai lable Notes: left knee surgery 06/09/2014 Vasectomy Information not avai lable 04/08/2015 CT, Head [facility] [address] [place] [id number] (Work Place) 03/08/2017 US, Duplex, Venous, Lower Extremity [facility] [address] [place] [facility] [place] [address] (Work Place) Results Lab Results Date Name Specimen Result Interpretation Description Value Range Status Address 12/03/2020 BMP, Serum Blood Normal Glucose 72 mg/dL 65-99 Final [facility] or Plasma venous mg/dL Diagnos [facility] Lab: [address], [place] Blood Normal Urea 13 mg/dL 7-25 Final [facility] venous Nitrogen mg/dL Diagnost ics (BUN) - [place] Lab: [address] [place] [address] Blood High Creatinin 1.52 0.70-1.2 Final Ques t venous e mg/dL 5 mg/dL Diagnosti cs - [place] Lab: [address] [place] [address] Blood Low eGFR 47 > or = Final [facility] venous Non-afr. mL/min/1 60 Diagno stics [place] .73m2 mL/min/1 - [place] .73m2 Lab: [address] [place] [address] Blood Low eGFR 55 > or = Final [facility] venous mL/min/1 60 Diagnos tics [place] .73m2 mL/min/1 - [place] .73m2 Lab: [address] [place] [address] Blood Normal BUN/creat 9 (calc) 6-22 Final Ques t venous inine (calc) Diagnostic [facility] Lab: [address] [place] [address] Blood Normal Sodium 142 135-146 Final [facility] venous mmol/L mmol/L Diagnostic [facility] Lab: [address] [place] [address] Blood Normal Potassium 4.0 3.5-5.3 Final [facility] venous mmol/L mmol/L Diagnostic [facility] Lab: [address] [place] [address] Blood Normal Chloride 105 98-110 Final [facility] venous mmol/L mmol/L Diagnostic [facility] Lab: [address] [place] [address] Blood Normal Carbon 28 20-32 Final [facility] venous Dioxide mmol/L mmol/L [facility] Lab: [address] [place] [address] Blood Normal Calcium 10.0 8.6-10.3 Final [facility] venous mg/dL mg/dL Diagnostic s [facility] Lab: [address] [place] [address] 11/27/2020 Lipid Blood Normal Cholester 160 <200 Final Qu est Panel, venous ol, Total mg/dL mg/dL Diagnos tics Serum - [place] Lab: [address] [place] [address] Blood Normal HDL 53 mg/dL > or = Final [facility] venous Cholestero 40 mg/dL Diag nostics l - [place] Lab: [address] [place] [address] Blood Normal Triglycer 79 mg/dL <150 Final Ques t venous ides mg/dL Diagnostic [facility] Lab: [address] [place] [address] Blood Normal LDL-barak 90 mg/dL Final Ques t venous sterol (calc) Diagnostic s [facility] Lab: [address] [place] [address] Blood Normal Chol/hdlc 3.0 <5.0 Final [facility] venous Ratio (calc) (calc) Diagnostic s - [place] Lab: [address] [place] [address] Blood Normal Non HDL 107 <130 Final [facility] venous Cholestero mg/dL mg/dL Diagno stics l (calc) (calc) - [place] Lab: [address] [place] [address] 11/27/2020 CMP, Serum Blood High Glucose 132 65-99 Final [facility] or Plasma venous mg/dL mg/dL Diagnos tics - [place] Lab: [address] [place] [address] Blood Normal Urea 12 mg/dL 7-25 Final [facility] venous Nitrogen mg/dL Diagnost ics (BUN) - [place] Lab: [address] [place] [address] Blood High Creatinin 1.76 0.70-1.2 Final Ques t venous e mg/dL 5 mg/dL Diagnosti [facility] Lab: [address] [place] [address] Blood Low eGFR 40 > or = Final [facility] venous Non-afr. mL/min/1 60 Diagno stics [place] .73m2 mL/min/1 - [place] .73m2 Lab: [address] [place] [address] Blood Low eGFR 46 > or = Final [facility] venous mL/min/1 60 Diagnos tics [place] .73m2 mL/min/1 - [place] .73m2 Lab: [address] [place] [address] Blood Normal BUN/creat 7 (calc) 6-22 Final Ques t venous inine (calc) Diagnostic [facility] [place] Lab: [address] [place] [address] Blood Normal Sodium 141 135-146 Final [facility] venous mmol/L mmol/L Diagnostic s - [place] Lab: [address] [place] [address] Blood Normal Potassium 4.3 3.5-5.3 Final [facility] venous mmol/L mmol/L Diagnostic s - [place] Lab: [address] [place] [address] Blood Normal Chloride 103 98-110 Final [facility] venous mmol/L mmol/L Diagnostic s - [place] Lab: [address] [place] [address] Blood Normal Carbon 31 20-32 Final [facility] venous Dioxide mmol/L mmol/L Diagnosti [facility] Lab: [address] [place] [address] Blood High Calcium 10.5 8.6-10.3 Final [facility] venous mg/dL mg/dL Diagnostic s [facility] Lab: [address] [place] [address] Blood Normal Protein, 7.7 g/dL 6.1-8.1 Final Ques t venous Total g/dL Diagnostic s [facility] Lab: [address] [place] [address] Blood Normal Albumin 4.7 g/dL 3.6-5.1 Final [facility] venous g/dL Diagnostic [facility] Lab: [address] [place] [address] Blood Normal Globulin 3.0 g/dL 1.9-3.7 Final Ques t venous (calc) g/dL Diagnostic s (calc) [facility] Lab: [address] [place] [address] Blood Normal Albumin/g 1.6 1.0-2.5 Final [facility] venous lobulin (calc) (calc) Diagnosti cs Ratio [facility] Lab: [address] [place] [address] Blood Normal Bilirubin 0.4 0.2-1.2 Final [facility] venous , Total mg/dL mg/dL [facility] Lab: [address] [place] [address] Blood Normal Alkaline 113 U/L 35-144 Final [facility] venous Phosphatas U/L Diagno stics [facility] Lab: [address] [place] [address] Blood Normal Ast 25 U/L 10-35 Final [facility] venous U/L Diagnostic [facility] Lab: [address] [place] [address] Blood Normal Alt 23 U/L 9-46 U/L Final [facility] venous Diagnostic [facility] Lab: [address] [place] [address] 11/27/2020 CBC W/ Blood Normal White 6.1 3.8-10.8 Final Ques t Auto Diff venous Blood Cell thousand thousand Diagnostics Count /uL /uL - [place] Lab: [address] [place] [address] Blood Normal Red Blood 5.08 4.20-5.8 Final Ques t venous Cell Count million/ 0 Diag nostics uL million/ - [place] Lab: [address] [place] [address] Blood Normal Hemoglobi 15.2 13.2-17. Final Ques t venous n g/dL 1 g/dL Diagnostic [facility] Lab: [address] [place] [address] Blood Normal Hematocri 46.6 % 38.5-50. Final Ques t venous t 0 % Diagnostic [facility] Lab: [address] [place] [address] Blood Normal Mcv 91.7 fL 80.0-100 Final [facility] venous .0 fL Diagnostic [facility] Lab: [address] [facility] Blood Normal Mch 29.9 pg 27.0-33. Final [facility] venous 0 pg Diagnostic [facility] Lab: [address] [facility] Blood Normal Mchc 32.6 32.0-36. Final [facility] venous g/dL 0 g/dL Diagnostic [facility] Lab: [address] [place] [address] [facility] Blood Normal Rdw 12.5 % 11.0-15. Final [facility] venous 0 % Diagnostic [facility] Lab: [address] [facility] [place] Blood Normal Platelet 287 140-400 Final [facility] venous Count thousand thousand Diagno stics /uL /uL - [place] Lab: [address] [facility], [place] Blood Normal Mpv 11.5 fL 7.5-12.5 Final [facility] venous fL Diagnostic [facility] Lab: [facility] Blood Normal Absolute 3325 1500-780 Final [facility] venous Neutrophil cells/uL 0 Diag nostics s cells/uL - [place] Lab: [address] [facility] Blood Normal Absolute 2098 850-3900 Final [facility] venous Lymphocyte cells/uL cells/uL Di [facility] Lab: [address] [facility] Blood Normal Absolute 390 200-950 Final [facility] venous Monocytes cells/uL cells/uL [facility] Lab: [address] [facility] Blood Normal Absolute 220 15-500 Final [facility] venous Eosinophil cells/uL cells/uL Di [facility]HC [facility] Lab: [address] [facility] Blood Normal Absolute 67 0-200 Final [facility] venous Basophils cells/uL cells/uL [facility]: [address] [facility] Blood Normal Neutrophi 54.5 % Final [facility] venous ls Diagnostic [facility] Lab: [address] [facility] Blood Normal Lymphocyt 34.4 % Final [facility] venous es Diagnostic [facility] Lab: [facility] Blood Normal Monocytes 6.4 % Final [facility] venous Diagnostic [facility] Lab: [address] [facility] Blood Normal Eosinophi 3.6 % Final [facility] venous ls Diagnostic [facility] Lab: [facility] Blood Normal Basophils 1.1 % Final [facility] venous Diagnostic [facility] Lab: [address] [facility] 11/27/2020 TSH, Serum Blood Normal TSH 3.87 0.40-4.5 Final [facility] or Plasma venous W/reflex mIU/L 0 mIU/L Diag nostics to FT4 - [place] Lab: [address] [facility] 11/27/2020 Test Test hemoglo Final Ques t Authorizat Name: bin A1C Diagn ostics ion - [place] Lab: [address] [facility] Test 496SB Final [facility] Code: Diagnostic s - [place] Lab: [address] [facility] [place] Client ashley Final [facility] Contact: [facility] Diagnos [facility] [place] Lab: [address] [facility] [place] Report Final [facility] Always Diagnostic s Message - [place] Signature Lab: [address] [facility] [place] Comment Final [facility] Diagnostic s [facility] Lab: [address] [facility] 11/27/2020 HbA1C Normal Hemoglobi 5.2 % of <5.7 % Final [facility] (Hemoglobi n a1C total of total Diag nostics n a1C), HGB HGB - [place] Blood Lab: [address] [facility] 01/09/2020 Lipid Blood Normal Cholester 154 <200 Final Qu est Panel, venous ol, Total mg/dL mg/dL Diagnos [facility] Serum - [place] Lab: [address] [facility] Blood Normal HDL 50 mg/dL > or = Final [facility] venous Cholestero 40 mg/dL Diag nostics l - [place] Lab: [address] [facility] Blood Normal Triglycer 79 mg/dL <150 Final Ques t venous ides mg/dL Diagnostic s [facility] Lab: [facility] Blood Normal LDL-barak 87 mg/dL Final Ques t venous sterol (calc) Diagnostic s [facility] Lab: [address] [facility] Blood Normal Chol/hdlc 3.1 <5.0 Final [facility] venous Ratio (calc) (calc) Diagnostic s [facility] Lab: [facility] Blood Normal Non HDL 104 <130 Final [facility] venous Cholestero mg/dL mg/dL Diagno stics l (calc) (calc) - [place] Lab: [facility] 01/09/2020 CMP, Serum Blood Normal Glucose 93 mg/dL 65-99 Final [facility] or Plasma venous mg/dL Diagnos tics - [place] Lab: [address] [place] [address] Blood Normal Urea 19 mg/dL 7-25 Final [facility] venous Nitrogen mg/dL Diagnost ics (BUN) - [place] Lab: [address] [place] [address] Blood High Creatinin 1.45 0.70-1.2 Final Ques t venous e mg/dL 5 mg/dL Diagnosti [facility] Lab: [address] [place] [address] Blood Low eGFR 51 > or = Final [facility] venous Non-afr. mL/min/1 60 Diagno stics [place] .73m2 mL/min/1 - [place] .73m2 Lab: [address] [place] [address] Blood Low eGFR 59 > or = Final [facility] venous mL/min/1 60 Diagnos tics [place] .73m2 mL/min/1 - [place] .73m2 Lab: [address] [place] [address] Blood Normal BUN/creat 13 6-22 Final [facility] venous inine (calc) (calc) Diagnostic s [facility] Lab: [address] [place] [address] Blood Normal Sodium 141 135-146 Final [facility] venous mmol/L mmol/L Diagnostic s [facility] Lab: [address] [place] [address] Blood Normal Potassium 4.7 3.5-5.3 Final [facility] venous mmol/L mmol/L Diagnostic s [facility] Lab: [address] [place] [address] Blood Normal Chloride 105 98-110 Final [facility] venous mmol/L mmol/L Diagnostic [facility] Lab: [address] [place] [address] Blood Normal Carbon 29 20-32 Final [facility] venous Dioxide mmol/L mmol/L Diagnosti - [place] Lab: [address] [place] [address] Blood Normal Calcium 10.3 8.6-10.3 Final [facility] venous mg/dL mg/dL Diagnostic s [facility] Lab: [address] [place] [address] Blood Normal Protein, 7.6 g/dL 6.1-8.1 Final Ques t venous Total g/dL Diagnostic s [facility] Lab: [address] [place] [address] Blood Normal Albumin 4.8 g/dL 3.6-5.1 Final [facility] venous g/dL Diagnostic s [facility] Lab: [address] [place] [address] Blood Normal Globulin 2.8 g/dL 1.9-3.7 Final Ques t venous (calc) g/dL Diagnostic s (calc) - [place] Lab: [address] [place] [address] Blood Normal Albumin/g 1.7 1.0-2.5 Final [facility] venous lobulin (calc) (calc) Diagnosti cs Ratio - [place] Lab: [address] [place] [address] Blood Normal Bilirubin 0.5 0.2-1.2 Final [facility] venous , Total mg/dL mg/dL Diagnosti - [place] Lab: [address] [place] [address] Blood Normal Alkaline 85 U/L 35-144 Final [facility] venous Phosphatas U/L Diagno stics e - [place] Lab: [address] [place] [address] Blood Normal Ast 24 U/L 10-35 Final [facility] venous U/L Diagnostic [facility] Lab: [address] [place] [address] Blood Normal Alt 24 U/L 9-46 U/L Final [facility] venous Diagnostic [facility] Lab: [address] [place] [address] 01/09/2020 CBC W/ Blood Normal White 5.8 3.8-10.8 Final Ques t Auto Diff venous Blood Cell thousand thousand Diagnostics Count /uL /uL - [place] Lab: [address] [place] [address] Blood Normal Red Blood 5.21 4.20-5.8 Final Ques t venous Cell Count million/ 0 Diag nostics uL million/ - [place] Lab: [address] [place] [address] Blood Normal Hemoglobi 15.1 13.2-17. Final Ques t venous n g/dL 1 g/dL Diagnostic [facility] Lab: [address] [place] [address] Blood Normal Hematocri 44.7 % 38.5-50. Final Ques t venous t 0 % Diagnostic [facility] Lab: [address] [place] [address] Blood Normal Mcv 85.8 fL 80.0-100 Final [facility] venous .0 fL Diagnostic [facility] Lab: [address] [place] [address] Blood Normal Mch 29.0 pg 27.0-33. Final [facility] venous 0 pg Diagnostic [facility] Lab: [address] [place] [address] Blood Normal Mchc 33.8 32.0-36. Final [facility] venous g/dL 0 g/dL Diagnostic [facility] Lab: [address] [place] [address] Blood Normal Rdw 12.6 % 11.0-15. Final [facility] venous 0 % Diagnostic [facility] Lab: [address] [facility] Blood Normal Platelet 214 140-400 Final [facility] venous Count thousand thousand Diagno stics /uL /uL - [place] Lab: [address] [facility] Blood Normal Mpv 11.3 fL 7.5-12.5 Final [facility] venous fL Diagnostic [facility] Lab: [address] [facility] Blood Normal Absolute 3149 1500-780 Final [facility] venous Neutrophil cells/uL 0 Diag nostics s cells/uL - [place] Lab: [address] [facility] Blood Normal Absolute [phone] Final [facility] venous Lymphocyte cells/uL cells/uL Di [facility] Lab: [address] [facility] Blood Normal Absolute 441 200-950 Final [facility] venous Monocytes cells/uL cells/uL [facility] Lab: [address] [facility] Blood Normal Absolute 191 15-500 Final [facility] venous Eosinophil cells/uL cells/uL Di [facility]HC [facility] Lab: [address] [facility] Blood Normal Absolute 29 0-200 Final [facility] venous Basophils cells/uL cells/uL [facility] Lab: [address] [facility] Blood Normal Neutrophi 54.3 % Final [facility] venous ls Diagnostic [facility] Lab[facility] [address] [facility] Blood Normal Lymphocyt 34.3 % Final [facility] venous es Diagnostic [facility] Lab: [address] [facility] Blood Normal Monocytes 7.6 % Final [facility] venous Diagnostic [facility] Lab: [address] [facility] Blood Normal Eosinophi 3.3 % Final [facility] venous ls Diagnostic [facility] Lab: [address] [facility] Blood Normal Basophils 0.5 % Final [facility] venous Diagnostic [facility] Lab: [address] [facility] 11/26/2019 Prescripti Prescript Yes Gigi Maiah: on/drug ion [facility] Reporting* Monitoring [address] e Checked 120, [place] Today 08/10/2019 SARS CoV 2 Nasopharyn Sars Cov not Fi nal [facility] RNA geal 2 RNA detected Diagnost ics (COVID-19) - Seat tle , QL, Lab: 1737 simulation technician-PCR, [facility] Respirator S, Sea ttle y Specimen 08/10/2019 Streptococ Strep a negative Gigi [place]: cus Group Result Gigi He alth a Ag [address] [place] [address], [place] 08/10/2019 Influenza Rapid Flu Neg Gigi [place]: a + B, a Result Gigi Hea lth Rapid [address] [facility] [place], 120, [place] Unspecifie d Specimen Rapid Flu Neg Gigi L atah: B Result Gigi Hea lth [address] [place] [address], [place] 06/28/2019 CT + NG Urine Normal Chlamydia not not Final Q uest RNA, PCR, Trachomati detected detected Diagnostics Unspecifie s RNA, - Seat tle d Specimen Tma, Lab: 1 737 [facility] Urine Normal Neisseria not not Final [facility] Gonorrhoea detected detected Di agnostics e RNA, - [facility] Tma, Lab: [address] [facility] Urine Comment Final [facility] Diagnostic s [facility] Lab: [address] [facility] y S, [facility] 06/28/2019 Urinalysis Urine Result Negative Gigi [place]: , Leukocytes Gigi H ealth Dipstick, (Negative) [address] [place] [address], [place] Urine Result negative Gigi La alberto: Nitrite Gigi Heal th (Negative) [address] [place] [address], [place] Urine Result Normal Gigi Ilene h: Urobilinog Gigi H ealth en (0.[address] [place] [address], [place] Urine Result Negative Gigi La alberto: Protein Gigi Heal th (Negative) [address] [place] [address], [place] Urine Result pH 5.5 Gigi L atah: (4.5 - Gigi Healt h 8.0) [address] [place] [address], [place] Urine Result Negative Gigi La alberto: Blood Gigi Healt h (Negative) [address] [place] [address], [place] Urine Result < 1.005 Gigi Lat ah: Specific Gigi Hea lth [place] [address] (1.002 - Street S te 1.010) 120, [place] Urine Result Negative Gigi La alberto: Ketones Gigi Heal th (Negative) [address] [place], [place] Urine Result Negative Gigi La alberto: Bilirubin Gigi He alth (Negative) [address] [facility] [address] [place] [address], [place] Urine Result Negative Gigi La alberto: Glucose Iggi Heal th (Negative) [address] [place] [address], [place] Urine Result Yellow Gigi Ilene h: Color Gigi Healt h [address] [facility] [address] [place] [address], [place] Urine Result Clear Gigi Ilene h: Clarity Gigi Heal th [address] [facility] [place] [address], [place] 03/29/2018 Lipid Blood High Cholester 201 <200 Final Qu est Panel, venous ol, Total mg/dL mg/dL Diagnos tics Serum - [facility] Lab: [address] [place] [address] Blood Normal HDL 43 mg/dL >40 Final [facility] venous Cholestero mg/dL Diagno stics l - [facility] Lab: [address] [place] [address] Blood Normal Triglycer 133 <150 Final [facility] venous ides mg/dL mg/dL Diagnostic s - [facility] Lab: [address] [place] [address] Blood High LDL-barak 133 Final [facility] venous sterol mg/dL Diagnostic s (calc) - [facility] Lab: [address] [place] [address] Blood Normal Chol/hdlc 4.7 <5.0 Final [facility] venous Ratio (calc) (calc) Diagnostic s [facility] Lab: [address] [place] [address] Blood High Non HDL 158 <130 Final [facility] venous Cholestero mg/dL mg/dL Diagno stics l (calc) (calc) - [facility] Lab: [address] [place] [address] 03/29/2018 CMP, Serum Blood Normal Glucose 97 mg/dL 65-99 Final [facility] or Plasma venous mg/dL Diagnos tics - [facility] Lab: [address] [place] [address] Blood Normal Urea 21 mg/dL 7-25 Final [facility] venous Nitrogen mg/dL Diagnost ics (BUN) - [facility] Lab: [address] [place] [address] Blood High Creatinin 1.48 0.70-1.2 Final Ques t venous e mg/dL 5 mg/dL Diagnosti cs - [facility] Lab: [address] [place] [address] Blood Low eGFR 50 > or = Final [facility] venous Non-afr. mL/min/1 60 Diagno stics [place] .73m2 mL/min/1 - Seat tle .73m2 Lab: [address] [place] [address] Blood Low eGFR 58 > or = Final [facility] venous mL/min/1 60 Diagnos tics [place] .73m2 mL/min/1 - Seat tle .73m2 Lab: [address] [place] [address] Blood Normal BUN/creat 14 6-22 Final [facility] venous inine (calc) (calc) Diagnostic s [facility] Lab: [address] [place] [address] Blood Normal Sodium 141 135-146 Final [facility] venous mmol/L mmol/L Diagnostic s - [facility] Lab: [address] [place] [address] Blood Normal Potassium 4.0 3.5-5.3 Final [facility] venous mmol/L mmol/L Diagnostic s - [facility] Lab: [address] [place] [address] Blood Normal Chloride 107 98-110 Final [facility] venous mmol/L mmol/L Diagnostic s - [facility] Lab: [address] [place] [address] Blood Normal Carbon 27 20-32 Final [facility] venous Dioxide mmol/L [facility] [address] [place] [address] Blood Normal Calcium 9.6 8.6-10.3 Final [facility] venous mg/dL mg/dL Diagnostic s - [facility] Lab: [address] [place] [address] Blood Normal Protein, 6.9 g/dL 6.1-8.1 Final Ques t venous Total g/dL Diagnostic s [facility] Lab: [address] [place] [address] Blood Normal Albumin 4.6 g/dL 3.6-5.1 Final [facility] venous g/dL Diagnostic [facility] Lab: [address] [place] [address] Blood Normal Globulin 2.3 g/dL 1.9-3.7 Final Ques t venous (calc) g/dL Diagnostic s (calc) - [facility] Lab: [address] [place] [address] Blood Normal Albumin/g 2.0 1.0-2.5 Final [facility] venous lobulin (calc) (calc) Diagnosti [facility] Lab: [address] [place] [address] Blood Normal Bilirubin 0.4 0.2-1.2 Final [facility] venous , Total mg/dL mg/dL Diagnosti - [facility] Lab: [address] [place] [address] Blood Normal Alkaline 74 U/L 40-115 Final [facility] venous Phosphatas U/L Diagno stics e - [facility] Lab: [address] [place] [address] Blood Normal Ast 22 U/L 10-35 Final [facility] venous U/L Diagnostic [facility] Lab: [address] [place] [address] Blood Normal Alt 24 U/L 9-46 U/L Final [facility] venous Diagnostic [facility] Lab: [address] [place] [address] 03/29/2018 CBC W/ Blood Normal White 5.4 3.8-10.8 Final Ques t Auto Diff venous Blood Cell thousand thousand Diagnostics Count /uL /uL - [facility] Lab: [address] [place] [address] Blood Normal Red Blood 5.14 4.20-5.8 Final Ques t venous Cell Count million/ 0 Diag nostics uL million/ - Seatt[facility] e uL Lab: [address] [place] [address] Blood Normal Hemoglobi 15.5 13.2-17. Final Ques t venous n g/dL 1 g/dL Diagnostic [facility] Lab: [address] [place] [address] Blood Normal Hematocri 44.9 % 38.5-50. Final Ques t venous t 0 % Diagnostic [facility] Lab: [address] [place] [address] Blood Normal Mcv 87.4 fL 80.0-100 Final [facility] venous .0 fL Diagnostic [facility] Lab: [address] [place] [address] Blood Normal Mch 30.2 pg 27.0-33. Final [facility] venous 0 pg Diagnostic [facility] Lab: [address] [place] [address] Blood Normal Mchc 34.5 32.0-36. Final [facility] venous g/dL 0 g/dL Diagnostic [facility] Lab: [address] [place] [address] Blood Normal Rdw 12.8 % 11.0-15. Final [facility] venous 0 % Diagnostic [facility] Lab: [address] [place] [address] Blood Normal Platelet 249 140-400 Final [facility] venous Count thousand thousand Diagno stics /uL /uL - [facility] Lab: [address] [place] [address] Blood Normal Mpv 11.2 fL 7.5-12.5 Final [facility] venous fL Diagnostic [facility] Lab: [address] [place] [address] [facility] Blood Normal Absolute 2592 1500-780 Final [facility] venous Neutrophil cells/uL 0 Diag nostics s cells/uL - [facility] Lab: [address] [place] [address] Blood Normal Absolute 2219 850-3900 Final [facility] venous Lymphocyte cells/uL cells/uL Di agnostics [facility] Lab: [address] [facility] Blood Normal Absolute 340 200-950 Final [facility] venous Monocytes cells/uL cells/uL [facility] Lab: 1736 [facility] Blood Normal Absolute 189 15-500 Final [facility] venous Eosinophil cells/uL cells/uL Di agnostics [facility] Lab: 17[address] [facility] Blood Normal Absolute 59 0-200 Final [facility] venous Basophils cells/uL cells/uL [facility]: [address] [facility] Blood Normal Neutrophi 48 % Final [facility] venous ls Diagnostic [facility] Lab: [address] [place] [address] Blood Normal Lymphocyt 41.1 % Final [facility] venous es Diagnostic [facility] Lab: [address] [place] [address] Blood Normal Monocytes 6.3 % Final [facility] venous Diagnostic [facility] Lab: [facility] Blood Normal Eosinophi 3.5 % Final [facility] venous ls Diagnostic [facility] Lab: [address] [place] [address] Blood Normal Basophils 1.1 % Final [facility] venous Diagnostic [facility] Lab: [address] [place] [address] 03/29/2018 TSH, Serum Blood Normal TSH 4.00 0.40-4.5 Final [facility] or Plasma venous W/reflex mIU/L 0 mIU/L Diag nostics to FT4 [facility] Lab: [address] [place] [address] 03/29/2018 Vitamin D, Blood Low Vitamin 15 NG/mL 30-100 Final [facility] 25-Hydroxy venous D,25-Oh,to NG/mL Di agnostic , Total, hua,ia - Seatt[place] e Serum Lab: [address] [place] [address] 07/13/2017 D-dimer, BLOOD CRITICAL D-dimer 1166 <=500 Final [facility] Quant, HIGH NG/mL NG/mL Medical Plasma (feu) (feu) Center (Lab): [address] [facility] BLOOD Dimex fibrinog Final [facility] Header en Medical equivale Center nt unit (Lab): 70 0 S (feu) [facility] 02/25/2017 Culture, ARM Culture Final [facility] Wound Wound Rflx ([facility] Lab): [address], [place] 07/29/2016 CBC W/ BLOOD Wbc. 6.3 5.0-11.0 Final [facility] Diff 1000/mm3 1000/mm3 [facility] [address] [facility] BLOOD Rbc 4.92 4.60-6.2 Final [facility] clemencia/mm3 0 Medical clemencia/mm3 Center (Lab): [address] [facility] BLOOD Hgb 14.6 13.5-17. Final itman gm/dL 5 gm/dL Medical Center (Lab): [address] [facility] BLOOD Hct 43.2 % 40.0-54. Final [facility] 0 % Medical Center (Lab): [address] [facility] BLOOD Mcv 88 fL 80-100 Final [facility] Center (Lab): [address] [facility] BLOOD Mch 30 pg 26-32 pg Final [facility] Center (Lab): [address] [facility] BLOOD Mchc 34 gm/dL 32-36 Final [facility] gm/dL Medical Center (Lab): [address] [facility] BLOOD Rdw 14.1 % 11.6-14. Final [facility] 8 % Medical Center (Lab): [address] [facility] BLOOD Plt 171 150-450 Final itman 1000/mm3 1000/mm3 [facility] [address] [facility] BLOOD Mpv 9.5 fL 6.5-12.0 Final [facility] Medical Center (Lab): [address] [facility] BLOOD Auto Diff auto Final [facility] tial Center (Lab): [address] [facility] BLOOD High Neut % 70 % 46-66 % Final [facility] Center (Lab): [address] [facility] BLOOD Low Lymphs % 23 % 24-44 % Final [facility] Center (Lab): [address] [facility] BLOOD [place] % 7 % 0-11 % Final [facility] (Lab): [address] [facility] BLOOD Eos % 0 % 0-4 % Final [facility] (Lab): [address] [facility] BLOOD Baso % 0 % 0-2 % Final [facility] (Lab): [address] [facility] BLOOD Neutrophi 4.4 1.8-7.8 Final Grit[facility] an ls # 1000/mm3 1000/mm3 [facility] ([facility] [address] [facility] BLOOD Lymphs # 1.4 1.0-4.8 Final [facility] n 1000/mm3 1000/mm3 [facility] (Lab): [address] [facility] BLOOD Monos # 0.4 0.0-0.8 Final [facility] 1000/mm3 1000/mm3 [facility] Center (Lab): [address] [facility] BLOOD Eos # 0.0 0.0-0.5 Final [facility] 1000/mm3 1000/mm3 [facility] (Lab): [address] [facility] BLOOD Baso # 0.0 0.0-0.2 Final [facility] 1000/mm3 1000/mm3 [facility] ([facility] [address] [facility] BLOOD Comment Final [facility] (Lab): [address] [facility] 07/29/2016 Prothrombi BLOOD Protime 11.3 9.7-13.5 Final [facility] Time seconds seconds Medical Center (Lab): [address] [facility] BLOOD Inr 1.0 0.8-1.2 Final [facility] ratio ratio Medical Center (Lab): [address] [facility] BLOOD Protime Final [facility] (Lab): [address] [facility] 07/29/2016 Activated BLOOD Aptt 26.0 25.7-35. Final G ritman Partial seconds 7 Medical Thrombopla seconds Cente r stin Time (Lab): [address] [facility] BLOOD APTT Final [facility] (Lab): [address] [facility] 07/29/2016 Platelet Collagen/e Collagen/ 121 sec 82-175 Fi nal Pathologists Function pinephrine epi sec ' Re gional Screen platelet Lab: [address] , [place] test Collagen/e Results Path ologists pinephrine ' Jenn onal platelet Lab: [address] , [place] test 04/21/2016 CBC W/ Automated Wbc 7.1 4.5-11.0 Final P athologists Auto Diff blood K/mcL K/mcL ' Regio nal basophil Lab: [address], [place] (count/vol ume) Automated Rbc 5.20 4.50-5.9 Final Patho logists blood M/mcL 0 M/mcL ' Regiona l basophil Lab: [address], [place] (count/vol ume) Automated Hemoglobi 14.9 13.5-16. Final P athologists blood n g/dL 5 g/dL ' Regional basophil Lab: [address], [place] (count/vol ume) Automated Hematocri 45.2 % 41.0-55. Final P athologists blood t 0 % ' Regional basophil Lab: [address], [place] (count/vol ume) Automated Mean Cell 87.0 fL 80.0-100 Final Pathologists blood Volume .0 fL ' Regional basophil Lab: [address], [place] (count/vol ume) Automated Mean 28.7 pg 26.0-34. Final Path ologists blood Corpuscula 0 pg ' Jenn onal basophil r Lab: [address], [place] (count/vol ume) Automated Mean 33.0 31.0-36. Final Patho logists blood Corpuscula g/dL 0 g/dL ' Jenn onal basophil r HGB Conc Lab: [address], [place] (count/vol ume) Automated Red Cell 13.9 % 11.5-14. Final Pa thologists blood Distributi 5 % ' Jenn onal basophil on Width Lab: [address], [place] (count/vol ume) Automated Platelet 297 140-440 Final Pat hologists blood Count K/mcL K/mcL ' Regional basophil Lab: [address], [place] (count/vol ume) Automated Mean 9.1 fL 7.4-10.4 Final Patho logists blood Platelet fL ' Region al basophil Volume Lab: [address], [place] (count/vol ume) Automated Gran % 69.0 % 38.0-78. Final Path ologists blood 0 % ' Regional basophil Lab: [address], [place] (count/vol ume) Automated Lymph % 24.7 % 15.5-49. Final Pat hologists blood 0 % ' Regional basophil Lab: [address], [place] (count/vol ume) Automated [place] % 4.2 % 1.0-9.0 Final Patho logists blood % ' Regional basophil Lab: [address], [place] (count/vol ume) Automated Eos % 1.5 % 0.0-7.0 Final Pathol ogists blood % ' Regional basophil Lab: [address], [place] (count/vol ume) Automated Baso % 0.6 % 0.0-2.0 Final Patho logists blood % ' Regional basophil Lab: [address], [place] (count/vol ume) Automated Gran # 4.9 1.8-8.0 Final Patho logists blood K/mcL K/mcL ' Regional basophil Lab: [address], [place] (count/vol ume) Automated Lymph # 1.8 1.5-4.8 Final Path ologists blood K/mcL K/mcL ' Regional basophil Lab: [address], [place] (count/vol ume) Automated [place] # 0.3 0.1-0.9 Final Patho logists blood K/mcL K/mcL ' Regional basophil Lab: [address], [place] (count/vol ume) Automated Eos # 0.1 0.0-0.7 Final Pathol ogists blood K/mcL K/mcL ' Regional basophil Lab: [address], [place] (count/vol ume) Automated Baso # 0.0 0.0-0.3 Final Patho logists blood K/mcL K/mcL ' Regional basophil Lab: [address], [place] (count/vol ume) 04/21/2016 HbA1C Blood Hemoglobi 5.4 % 4.0-6.0 Final P athologists (Hemoglobi glucose n a1C HGB % HGB ' Reg ional n a1C), mean value Lab: [address] Blood measuremen [place]ella [place] t estimated from glycated hemoglobin (mass/volu me) Blood Estimated 108 Final Pathol ogists glucose Average mg/dL ' Region al mean value Glucose Lab: [address] measuremen [place] t estimated from glycated hemoglobin (mass/volu me) Blood Results Patholog ists glucose ' Regiona l mean value Lab: 4 [address] measuremen [place] t estimated from glycated hemoglobin (mass/volu me) 04/21/2016 CMP, Serum Blood Glucose,r 89 mg/dL 70-105 Fin al Pathologists or Plasma venous andom mg/dL ' Regio nal Lab: [address], [place] Blood Blood 12 mg/dL 6-20 Final Patholog ists venous Urea mg/dL ' Regional Nitrogen Lab: [address], [place] Blood High Creatinin 1.6 0.7-1.2 Final Patho logists venous e mg/dL mg/dL ' Regional Lab: [address], [place] Blood Sodium 142 133-145 Final Patholog ists venous mmol/L mmol/L ' Regional Lab: [address], [place] Blood Potassium 3.9 3.3-5.1 Final Patho logists venous mmol/L mmol/L ' Regional Lab: [address], [place] Blood Chloride 100 96-108 Final Patholo gists venous mmol/L mmol/L ' Regional Lab: [address], [place] Blood Carbon 24 22-30 Final Pathologi sts venous Dioxide mmol/L mmol/L ' Regiona l Lab: [address], [place] Blood High Anion Gap 18.0 8-16 Final Pathol ogists venous ' Regional Lab: [address], [place] Blood Calcium 9.8 8.6-10.4 Final Pathol ogists venous mg/dL mg/dL ' Regional Lab: [address], [place] Blood Total 7.7 5.9-8.4 Final Pathologi sts venous Protein gm/dL gm/dL ' Regiona l Lab: [address], [place] Blood Albumin 5.0 3.2-5.2 Final Patholo gists venous gm/dL gm/dL ' Regional Lab: [address], [place] Blood Globulin 2.7 2.2-3.7 Final Pathol ogists venous gm/dL gm/dL ' Regional Lab: [address], [place] Blood Alb/glob 1.9 1.0-2.3 Final Pathol ogists venous Ratio ' Regional Lab: [address], [place] Blood Bilirubin 0.3 0.0-1.0 Final Patho logists venous ,total mg/dL mg/dL ' Regional Lab: [address], [place] Blood AST/SGOT 28 U/l 0-37 U/l Final Patho logists venous ' Regional Lab: [address], [place] Blood ALT/SGPT 25 U/l 0-40 U/l Final Patho logists venous ' Regional Lab: [address], [place] Blood Alkaline 96 U/L 39-117 Final Patholo gists venous Phosphatas U/L ' Jenn onal e Lab: [address], [place] Blood Glomerula 46 Final Pathol ogists venous r ' Regional Filtration Lab: [address], [place] 04/21/2016 Lipid Serum or Cholester 191 <200 Final Pathologists Panel W/ plasma ol mg/dL mg/dL ' Region al Direct cholestero Lab: 4 [address] LDL, Serum l non HDL St, [place] measuremen t (mass/volu me) Serum or High Triglycer 162 <150 Final Path ologists plasma ides mg/dL mg/dL ' Regional cholestero Lab: [address], [place] measuremen t (mass/volu me) Serum or HDL 56 mg/dL >40 Final Pathol ogists plasma Cholestero mg/dL ' Jenn onal cholestero l Lab: 4 [address], [place] measuremen t (mass/volu me) Serum or High LDL,calcu 103 see Final Path ologists plasma lated mg/dL chart ' Regional cholestero mg/dL Lab: [address], [place] measuremen t (mass/volu me) Serum or High non-HDL 135 LDL Final Pathol ogists plasma Cholestero target+3 ' Re gional cholestero l 0 Lab: [address], [place] measuremen t (mass/volu me) Serum or Results Pathol ogists plasma ' Regional cholestero Lab: [address], [place] measuremen t (mass/volu me) 04/21/2016 TSH, Serum Thyrotropi TSH with 4.99 0.27-5.0 Final Pathologists or Plasma n Reflex FT4 uIU/mL 1 uIU/mL ' Regional [mass/volu Lab: 4 [address] me] in [facility] on serum or plasma Thyrotropi Results Path ologists n ' Regional [mass/volu Lab: 4 [address] me] in [facility] on serum or plasma 04/21/2016 Vitamin Serum or Vitamin 34.88 >=30 Final P athologists D3, plasma D, NG/mL NG/mL [facility] 25-Hydroxy calcidiol 25-Hydroxy Lab: [address] , Serum measuremen St, [facility] t (mass/volu me) Serum or Results [facility] plasma [facility] calcidiol Lab: [address], [place] [facility] t (mass/volu me) 04/21/2016 Hepatitis Serum or HCV not () Final P athologists C plasma Genotype detected ' Jenn onal Genotype, hepatitis Lipa Lab: [address] Serum or C virus St, [place] Plasma genotype identifica tion by probe and target amplificat ion method Serum or Results Pathol [facility] plasma [facility] hepatitis Lab: [address], [place] genotype identifica tion by probe and target amplificat ion method 04/21/2016 Hepatitis Hepatitis HCV RNA, <1.18 <1.18 Babita l Pathologists C Virus C virus Quant Real not ' Re gional RNA, RNA Time PCR detected Lab: 4 [address] Quant, [units/vol St, Nella [facility] PCR, Serum ume] or Plasma (viral load) in serum or plasma by probe and target amplificat io Hepatitis See Note: see note () Final P athologists C virus ' Regiona l RNA Lab: [address] [units/vol St, Nella [facility] ume] (viral load) in serum or plasma by probe and target amplificat io Hepatitis HCV RNA, <15 not <15 Final Pat hologists C virus PCR,qn detected IU/mL ' Regio nal RNA IU/mL Lab: [address] [units/vol St, [place]ella [facility] ume] (viral load) in serum or plasma by probe and target amplificat io 01/20/2016 CBC W/ Automated Wbc 6.8 4.5-11.0 Final P athologists Auto Diff blood K/mcL K/mcL ' Regio nal basophil Lab: [address], [place] (count/vol ume) Automated Rbc 5.00 4.50-5.9 Final Patho logists blood M/mcL 0 M/mcL ' Regiona l basophil Lab: [address], [place] (count/vol ume) Automated Hemoglobi 14.5 13.5-16. Final P athologists blood n g/dL 5 g/dL ' Regional basophil Lab: [address], [place] (count/vol ume) Automated Hematocri 44.4 % 41.0-55. Final P athologists blood t 0 % ' Regional basophil Lab: [address], [place] (count/vol ume) Automated Mean Cell 88.7 fL 80.0-100 Final Pathologists blood Volume .0 fL ' Regional basophil Lab: [address], [place] (count/vol ume) Automated Mean 29.0 pg 26.0-34. Final Path ologists blood Corpuscula 0 pg ' Jenn onal basophil r Lab: [address], [place] (count/vol ume) Automated Mean 32.7 31.0-36. Final Patho logists blood Corpuscula g/dL 0 g/dL ' Jenn onal basophil r HGB Conc Lab: [address], [place] (count/vol ume) Automated Red Cell 13.4 % 11.5-14. Final Pa thologists blood Distributi 5 % ' Jenn onal basophil on Width Lab: [address], [place] (count/vol ume) Automated Platelet 216 140-440 Final Pat hologists blood Count K/mcL K/mcL ' Regional basophil Lab: [address], [place] (count/vol ume) Automated Mean 9.2 fL 7.4-10.4 Final Patho logists blood Platelet fL ' Region al basophil Volume Lab: [address], [place] (count/vol ume) Automated Gran % 63.4 % 38.0-78. Final Path ologists blood 0 % ' Regional basophil Lab: [address], [place] (count/vol ume) Automated Lymph % 28.7 % 15.5-49. Final Pat hologists blood 0 % ' Regional basophil Lab: [address], [place] (count/vol ume) Automated [place] % 5.3 % 1.0-9.0 Final Patho logists blood % ' Regional basophil Lab: [address], [place] (count/vol ume) Automated Eos % 1.9 % 0.0-7.0 Final Pathol ogists blood % ' [facility] basophil Lab: [address], [place] (count/vol ume) Automated Baso % 0.7 % 0.0-2.0 Final Patho logists blood % ' [facility] basophil Lab: [address], [place] (count/vol ume) Automated Gran # 4.3 1.8-8.0 Final Patho logists blood K/mcL K/mcL ' Regional basophil Lab: [address], [place] (count/vol ume) Automated Lymph # 2.0 1.5-4.8 Final Path ologists blood K/mcL K/mcL ' [facility] basophil Lab: [address], [place] (count/vol ume) Automated [place] # 0.4 0.1-0.9 Final Patho logists blood K/mcL K/mcL ' [facility] basophil Lab: [address], [place] (count/vol ume) Automated Eos # 0.1 0.0-0.7 Final Pathol ogists blood K/mcL K/mcL ' [facility] basophil Lab: [address], [place] (count/vol ume) Automated Baso # 0.0 0.0-0.3 Final Patho logists blood K/mcL K/mcL ' Regional basophil Lab: [address], [place] (count/vol ume) 01/20/2016 Vitamin Serum or # Vitamin 39.78 >=30 Final P athologists D3, plasma D, NG/mL NG/mL ' Regional 25-Hydroxy calcidiol 25-Hydroxy Lab: [address] , Serum measuremen , [facility] t (mass/volu me) Serum or [facility] plasma ' Regional calcidiol Lab: [address] measuremen [place] t (mass/volu me) 01/20/2016 HbA1C Blood Hemoglobi 5.7 % 4.0-6.0 Final P athologists (Hemoglobi glucose n a1C HGB % HGB ' Reg ional n a1C), mean value Lab: [address] Blood measuremen [place] t estimated from glycated hemoglobin (mass/volu me) Blood Estimated 117 Final Pathol ogists glucose Average mg/dL ' Region al mean value Glucose Lab: [address] measuremen [place] t estimated from glycated hemoglobin (mass/volu me) Blood Results Patholog ists glucose ' Regiona l mean value Lab: [address] [facility] [address], [place] t estimated from glycated hemoglobin (mass/volu me) 01/20/2016 TSH, Serum TSH w T4 TSH with 3.06 0.27-5.0 Fi nal Pathologists or Plasma reflex to Reflex FT4 uIU/mL 1 uIU/mL ' Regional free Lab: [address], [place] TSH w T4 Results Pathol ogists reflex to ' Regio nal free Lab: [address], [place] 01/20/2016 CMP, Serum Blood Glucose,r 94 mg/dL 70-105 Fin al Pathologists or Plasma venous andom mg/dL ' Regio nal Lab: [address], [place] Blood Blood 14 mg/dL 6-20 Final Patholog ists venous Urea mg/dL ' Regional Nitrogen Lab: [address], [place] Blood High Creatinin 1.4 0.7-1.2 Final Patho logists venous e mg/dL mg/dL ' Regional Lab: [address], [place] Blood Sodium 142 133-145 Final Patholog ists venous mmol/L mmol/L ' Regional Lab: [address], [place] Blood Potassium 4.3 3.3-5.1 Final Patho logists venous mmol/L mmol/L ' Regional Lab: [address], [place] Blood Chloride 103 96-108 Final Patholo gists venous mmol/L mmol/L ' Regional Lab: [address], [place] Blood Carbon 24 22-30 Final Pathologi sts venous Dioxide mmol/L mmol/L ' Regiona l Lab: [address], [place] Blood Anion Gap 15.0 8-16 Final Pathol ogists venous ' Regional Lab: [address], [place] Blood Calcium 9.6 8.6-10.4 Final Pathol ogists venous mg/dL mg/dL ' Regional Lab: [address], [place] Blood Total 7.3 5.9-8.4 Final Pathologi sts venous Protein gm/dL gm/dL ' Regiona l Lab: [address], [place] Blood Albumin 4.6 3.2-5.2 Final Patholo gists venous gm/dL gm/dL ' Regional Lab: [address], [place] Blood Globulin 2.7 2.2-3.7 Final Pathol ogists venous gm/dL gm/dL ' Regional Lab: [address], [place] Blood Alb/glob 1.7 1.0-2.3 Final Pathol ogists venous Ratio ' Regional Lab: [address], [place] Blood Bilirubin 0.2 0.0-1.0 Final Patho logists venous ,total mg/dL mg/dL ' Regional Lab: [address], [place] Blood AST/SGOT 25 U/l 0-37 U/l Final Patho logists venous ' Regional Lab: [address], [place] Blood ALT/SGPT 22 U/l 0-40 U/l Final Patho logists venous ' [facility] Lab: [address], [place] Blood Alkaline 86 U/L 39-117 Final Patholo gists venous Phosphatas U/L ' Jenn onal e Lab: [address], [place] Blood Glomerula 54 Final Pathol ogists venous r ' [facility] Filtration Lab: [address], [place] 01/20/2016 Lipid Serum or High Cholester 212 <200 Final Pathologists Panel W/ plasma ol mg/dL mg/dL ' Region al Direct cholestero Lab: 4 [address] LDL, Serum l non HDL St, [place] measuremen t (mass/volu me) Serum or Triglycer 76 mg/dL <150 Final Pa thologists plasma ides mg/dL ' Regional cholestero Lab: [address], [place] measure[place] t (mass/volu me) Serum or HDL 67 mg/dL >40 Final Pathol ogists plasma Cholestero mg/dL ' Jenn onal cholestero l Lab: [address], [place] measure[place] t (mass/volu me) Serum or High LDL,calcu 130 see Final Path ologists plasma lated mg/dL chart ' Regional cholestero mg/dL Lab: [address], [place] measure[place] t (mass/volu me) Serum or High non-HDL 145 LDL Final Pathol ogists plasma Cholestero target+3 ' Re gional cholestero l 0 Lab: [address], [place] measure[place] t (mass/volu me) Serum or Results Pathol ogists plasma ' Regional cholestero Lab: [address], [place] measure[place] t (mass/volu me) 08/27/2015 CMP, Serum Glomerular High Glucose,r 126 70-105 F inal Pathologists or Plasma filtration andom mg/dL mg/dL ' R egional rate/1.73 Lab: [address], [place] m.predicte d by creatinine -based formula (mdrd) Glomerular Blood 12 mg/dL 6-20 Final Path ologists filtration Urea mg/dL ' Jenn onal rate/1.73 Nitrogen Lab: [address], [place] m.predicte d by creatinine -based formula (mdrd) Glomerular High Creatinin 1.3 0.7-1.2 Final P athologists filtration e mg/dL mg/dL ' Jenn onal rate/1.73 Lab: [address], [place] m.predicte d by creatinine -based formula (mdrd) Glomerular Sodium 141 133-145 Final Path ologists filtration mmol/L mmol/L ' Jenn onal rate/1.73 Lab: [address], [place] m.predicte d by creatinine -based formula (mdrd) Glomerular Potassium 3.7 3.3-5.1 Final P athologists filtration mmol/L mmol/L ' Jenn onal rate/1.73 Lab: [address], [place] m.predicte d by creatinine -based formula (mdrd) Glomerular Chloride 103 96-108 Final Pat hologists filtration mmol/L mmol/L ' Jenn onal rate/1.73 Lab: [address], [place] m.predicte d by creatinine -based formula (mdrd) Glomerular Carbon 24 22-30 Final Patho logists filtration Dioxide mmol/L mmol/L ' Reg ional rate/1.73 Lab: [address], [place] m.predicte d by creatinine -based formula (mdrd) Glomerular Anion Gap 14.0 8-16 Final Pa thologists filtration ' Jenn onal rate/1.73 Lab: [address], [place] m.predicte d by creatinine -based formula (mdrd) Glomerular Calcium 9.5 8.6-10.4 Final Pa thologists filtration mg/dL mg/dL ' Jenn onal rate/1.73 Lab: [address], [place] m.predicte d by creatinine -based formula (mdrd) Glomerular Total 7.0 5.9-8.4 Final Patho logists filtration Protein gm/dL gm/dL ' Reg ional rate/1.73 Lab: [address], [place] m.predicte d by creatinine -based formula (mdrd) Glomerular Albumin 4.2 3.2-5.2 Final Pat hologists filtration gm/dL gm/dL ' Jenn onal rate/1.73 Lab: [address], [place] m.predicte d by creatinine -based formula (mdrd) Glomerular Globulin 2.8 2.2-3.7 Final Pa thologists filtration gm/dL gm/dL ' Jenn onal rate/1.73 Lab: [address], [place] m.predicte d by creatinine -based formula (mdrd) Glomerular Alb/glob 1.5 1.0-2.3 Final Pa thologists filtration Ratio ' Jenn onal rate/1.73 Lab: [address], [place] m.predicte d by creatinine -based formula (mdrd) Glomerular Bilirubin 0.3 0.0-1.0 Final P athologists filtration ,total mg/dL mg/dL ' Jenn onal rate/1.73 Lab: [address], [place] m.predicte d by creatinine -based formula (mdrd) Glomerular AST/SGOT 26 U/l 0-37 U/l Final P athologists filtration ' Jenn onal rate/1.73 Lab: [address], [place] m.predicte d by creatinine -based formula (mdrd) Glomerular ALT/SGPT 27 U/l 0-40 U/l Final P athologists filtration ' Jenn onal rate/1.73 Lab: [address], [place] m.predicte d by creatinine -based formula (mdrd) Glomerular Alkaline 76 U/L 39-117 Final Pat hologists filtration Phosphatas U/L ' Regional rate/1.73 e Lab: [address], [place] m.predicte d by creatinine -based formula (mdrd) Glomerular Glomerula 59 Final Pa thologists filtration r ' Jenn onal rate/1.73 Filtration Lab : [address], [place] m.predicte d by creatinine -based formula (mdrd) Glomerular Results Path ologists filtration ' Jenn onal rate/1.73 Lab: [address], [place] m.predicte d by creatinine -based formula (mdrd) 08/27/2015 Hepatitis Serum Hepatitis non negative Babita l Pathologists Panel hepatitis a Antibody reactive ' Regional (A+B+C), B virus IgM Lab: [address] Acute, surface St, [place] Serum antigen detection Serum Hepatitis reactive negative Final Pa thologists hepatitis C Antibody ' R egional B virus Lab: [address], [place] antigen detection Serum Hepatitis non negative Final Path ologists hepatitis B Core reactive ' Reg ional B virus Antibody Lab: [address], [place] antigen detection Serum Hepatitis negative negative Final Pa thologists hepatitis B Surface ' Re gional B virus Antigen Lab: [address], [place] antigen detection Serum Results Patholog ists hepatitis ' Regio nal B virus Lab: [address], [place] antigen detection 08/27/2015 Hepatitis Blood HCV not () Final Pat hologists C venous Genotype detected ' [place] Genotype, [place] Lab: [address], [place] Plasma 08/27/2015 Hepatitis Serum or HCV RNA < 15 < 15 Final Pathologists C Virus plasma Quant IU/mL IU/mL ' [facility], [facility] Lab : [address] Quant, C virus PCR St, [place] PCR, Serum RNA viral or Plasma load by probe and target amplificat ion method (log units/ Serum or HCV RNA, < 1.18 < 1.18 Final Patho logists plasma Quant Real logiu/mL logiu/mL ' Replaced By [facility] hepatitis Time PCR Lab: [address], [place] RNA viral load by probe and target amplificat ion method (log units/ Serum or Results Pathol ogists plasma ' Regional hepatitis Lab: [address], [place] RNA viral load by probe and target amplificat ion method (log units/ 08/22/2015 CMP, Serum Blood Glucose,r 89 mg/dL 70-105 Fin al Pathologists or Plasma venous andom mg/dL ' Regio nal Lab: [address], [place] Blood Blood 12 mg/dL 6-20 Final Patholog ists venous Urea mg/dL ' Regional Nitrogen Lab: [address], [place] Blood High Creatinin 1.5 0.7-1.2 Final Patho logists venous e mg/dL mg/dL ' Regional Lab: [address], [place] Blood Sodium 141 133-145 Final Patholog ists venous mmol/L mmol/L ' Regional Lab: [address], [place] Blood Potassium 3.5 3.3-5.1 Final Patho logists venous mmol/L mmol/L ' Regional Lab: [address], [place] Blood Chloride 101 96-108 Final Patholo gists venous mmol/L mmol/L ' Regional Lab: [address], [place] Blood Carbon 26 22-30 Final Pathologi sts venous Dioxide mmol/L mmol/L ' Regiona l Lab: [address], [place] Blood Anion Gap 14.0 8-16 Final Pathol ogists venous ' Regional Lab: [address], [place] Blood Calcium 9.4 8.6-10.4 Final Pathol ogists venous mg/dL mg/dL ' Regional Lab: [address], [place] Blood Total 7.3 5.9-8.4 Final Pathologi sts venous Protein gm/dL gm/dL ' Regiona l Lab: [address], [place] Blood Albumin 4.6 3.2-5.2 Final Patholo gists venous gm/dL gm/dL ' Regional Lab: [address], [place] Blood Globulin 2.7 2.2-3.7 Final Pathol ogists venous gm/dL gm/dL ' Regional Lab: [address], [place] Blood Alb/glob 1.7 1.0-2.3 Final Pathol ogists venous Ratio ' Regional Lab: [address], [place] Blood Bilirubin 0.3 0.0-1.0 Final Patho logists venous ,total mg/dL mg/dL ' Regional Lab: [address], [place] Blood High AST/SGOT 40 U/l 0-37 U/l Final Patho logists venous ' Regional Lab: [address], [place] Blood ALT/SGPT 39 U/l 0-40 U/l Final Patho logists venous ' Regional Lab: [address], [place] Blood Alkaline 82 U/L 39-117 Final Patholo gists venous Phosphatas U/L ' Jenn onal e Lab: [address], [place] Blood Glomerula 50 Final Pathol ogists venous r ' Regional Filtration Lab: [address], [place] 08/22/2015 GGT Gamma 14 U/L 8-61 U/L Final Path ologists Serpl-ccnc Glutamyl ' Re gional Transferas Lab: [address], [place] 08/22/2015 TIBC Serum or Serum 73 61-157 Final Path ologists (Total plasma Iron mcg/dL mcg/dL ' Regional Iron-navi iron Lab: [address], [place] [facility] Capacity), measuremen Serum t (molar fraction) Serum or Unsaturat 272 112-346 Final Pat hologists plasma ed Iron mcg/dL mcg/dL ' Regiona l iron Binding Lab: [address], [facility] measuremen t (molar fraction) Serum or TIBC 345 228-428 Final Patholo gists plasma Calculatio ug/dL ug/dL ' Jenn onal iron n Lab: [address], [facility] measuremen t (molar fraction) Serum or % 21 % 20-50 % Final Patholo gists plasma Transferri ' Jenn onal iron n Lab: [address] , [place] measuremen t (molar fraction) 08/22/2015 Hepatitis Serum Hepatitis non negative Babita l Pathologists Panel hepatitis a Antibody reactive ' Regional (A+B+C), B virus IgM Lab: [address] Acute, surface St, [place] Serum antigen detection Serum Hepatitis reactive negative Final Pa thologists hepatitis C Antibody ' R egional B virus Lab: [address], [place] antigen detection Serum Hepatitis non negative Final Path ologists hepatitis B Core reactive ' Reg ional B virus Antibody Lab: [address], [place] antigen detection Serum Hepatitis negative negative Final Pa thologists hepatitis B Surface ' Re gional B virus Antigen Lab: [address], [place] antigen detection Serum Results Patholog ists hepatitis ' Regio nal B virus Lab: [address], [place] antigen detection 08/19/2015 CBC W/ Automated Wbc 6.4 4.5-11.0 Final P athologists Auto Diff blood K/mcL K/mcL ' Regio nal basophil Lab: [address], [place] (count/vol ume) Automated Rbc 5.22 4.50-5.9 Final Patho logists blood M/mcL 0 M/mcL ' Regiona l basophil Lab: [address], [place] (count/vol ume) Automated Hemoglobi 15.4 13.5-16. Final P athologists blood n g/dL 5 g/dL ' Regional basophil Lab: [address], [place] (count/vol ume) Automated Hematocri 47.1 % 41.0-55. Final P athologists blood t 0 % ' Regional basophil Lab: [address], [place] (count/vol ume) Automated Mean Cell 90.2 fL 80.0-100 Final Pathologists blood Volume .0 fL ' Regional basophil Lab: [address], [place] (count/vol ume) Automated Mean 29.4 pg 26.0-34. Final Path ologists blood Corpuscula 0 pg ' Jenn onal basophil r Lab: [address] [place] (count/vol ume) Automated Mean 32.6 31.0-36. Final Patho logists blood Corpuscula g/dL 0 g/dL ' Jenn onal basophil r HGB Conc Lab: [address], [place] (count/vol ume) Automated Red Cell 13.7 % 11.5-14. Final Pa thologists blood Distributi 5 % ' Jenn onal basophil on Width Lab: [address], [place] (count/vol ume) Automated Platelet 215 140-440 Final Pat hologists blood Count K/mcL K/mcL ' Regional basophil Lab: [address], [place] (count/vol ume) Automated Mean 10.3 fL 7.4-10.4 Final Path ologists blood Platelet fL ' Region al basophil Volume Lab: [address], [place] (count/vol ume) Automated Gran % 48.9 % 38.0-78. Final Path ologists blood 0 % ' Regional basophil Lab: [address], [place] (count/vol ume) Automated Lymph % 41.3 % 15.5-49. Final Pat hologists blood 0 % ' Regional basophil Lab: [address], [place] (count/vol ume) Automated [place] % 5.7 % 1.0-9.0 Final Patho logists blood % ' Regional basophil Lab: [address], [place] (count/vol ume) Automated Eos % 3.6 % 0.0-7.0 Final Pathol ogists blood % ' Regional basophil Lab: [address], [place] (count/vol ume) Automated Baso % 0.5 % 0.0-2.0 Final Patho logists blood % ' Regional basophil Lab: [address], [place] (count/vol ume) Automated Gran # 3.1 1.8-8.0 Final Patho logists blood K/mcL K/mcL ' Regional basophil Lab: [address], [place] (count/vol ume) Automated Lymph # 2.6 1.5-4.8 Final Path ologists blood K/mcL K/mcL ' Regional basophil Lab: [address], [place] (count/vol ume) Automated [place] # 0.4 0.1-0.9 Final Patho logists blood K/mcL K/mcL ' Regional basophil Lab: [address], [place] (count/vol ume) Automated Eos # 0.2 0.0-0.7 Final Pathol ogists blood K/mcL K/mcL ' Regional basophil Lab: [address], [place] (count/vol ume) Automated Baso # 0.0 0.0-0.3 Final Patho logists blood K/mcL K/mcL ' Regional basophil Lab: [address], [place] (count/vol ume) 08/19/2015 CMP, Serum Blood High Glucose,r 109 70-105 Final Pathologists or Plasma venous andom mg/dL mg/dL ' Regio nal Lab: [address], [place] Blood Blood 10 mg/dL 6-20 Final Patholog ists venous Urea mg/dL ' Regional Nitrogen Lab: [address], [place] Blood High Creatinin 1.4 0.7-1.2 Final Patho logists venous e mg/dL mg/dL ' Regional Lab: [address], [place] Blood Sodium 142 133-145 Final Patholog ists venous mmol/L mmol/L ' Regional Lab: [address], [place] Blood Potassium 3.7 3.3-5.1 Final Patho logists venous mmol/L mmol/L ' Regional Lab: [address], [place] Blood Chloride 101 96-108 Final Patholo gists venous mmol/L mmol/L ' Regional Lab: [address], [place] Blood Carbon 25 22-30 Final Pathologi sts venous Dioxide mmol/L mmol/L ' Regiona l Lab: [address], [place] Blood Anion Gap 16.0 8-16 Final Pathol ogists venous ' Regional Lab: [address], [place] Blood Calcium 10.1 8.6-10.4 Final Pathol ogists venous mg/dL mg/dL ' Regional Lab: [address], [place] Blood Total 8.0 5.9-8.4 Final Pathologi sts venous Protein gm/dL gm/dL ' Regiona l Lab: [address], [place] Blood Albumin 4.8 3.2-5.2 Final Patholo gists venous gm/dL gm/dL ' Regional Lab: [address], [place] Blood Globulin 3.2 2.2-3.7 Final Pathol ogists venous gm/dL gm/dL ' Regional Lab: [address], [place] Blood Alb/glob 1.5 1.0-2.3 Final Pathol ogists venous Ratio ' Regional Lab: [address], [place] Blood Bilirubin 0.3 0.0-1.0 Final Patho logists venous ,total mg/dL mg/dL ' Regional Lab: [address], [place] Blood High AST/SGOT 89 U/l 0-37 U/l Final Patho logists venous ' Regional Lab: [address], [place] Blood High ALT/SGPT 61 U/l 0-40 U/l Final Patho logists venous ' Regional Lab: [address], [place] Blood Alkaline 89 U/L 39-117 Final Patholo gists venous Phosphatas U/L ' Jenn onal e Lab: [address], [place] Blood Glomerula 54 Final Pathol ogists venous r ' Regional Filtration Lab: [address], [place] 08/19/2015 Lipid Serum or Cholester 195 <200 Final Pathologists Panel W/ plasma ol mg/dL mg/dL ' Region al Direct cholestero Lab: [address] LDL, Serum l non HDL St, [place] measuremen t (mass/volu me) Serum or Triglycer 139 <150 Final Path ologists plasma ides mg/dL mg/dL ' Regional cholestero Lab: [address], [place] measuremen t (mass/volu me) Serum or HDL 54 mg/dL >40 Final Pathol ogists plasma Cholestero mg/dL ' Jenn onal cholestero l Lab: [address], [place] measuremen t (mass/volu me) Serum or High LDL,calcu 114 see Final Path ologists plasma lated mg/dL chart ' Regional cholestero mg/dL Lab: [address], [place] measuremen t (mass/volu me) Serum or High non-HDL 141 LDL Final Pathol ogists plasma Cholestero target+3 ' Re gional cholestero l 0 Lab: [address], [place] measuremen t (mass/volu me) Serum or Results Pathol ogists plasma ' Regional cholestero Lab: [address], [place] measuremen t (mass/volu me) 08/19/2015 Thyrotropi Serum or TSH with 4.36 0.27-5.0 Fi nal Pathologists n, QN, plasma Reflex FT4 uIU/mL 1 uIU/mL ' Re gional Ultra-sens thyrotropi La b: [address], n St, [place] Serum or measuremen Plasma t by detection limit Serum or Results Pathol ogists plasma ' Regional thyrotropi Lab: [address], [place] measuremen t by detection limit 08/19/2015 Vitamin Serum or Low Vitamin 17.30 >=30 Final P athologists D3, plasma D, NG/mL NG/mL ' Regional 25-Hydroxy calcidiol 25-Hydroxy Lab: [address] , Serum measuremen St, [place] t (mass/volu me) Serum or Results Pathol ogists plasma ' Regional calcidiol Lab: [address], [place] t (mass/volu me) 04/23/2015 CMP, Serum Blood High Glucose,r 128 70-105 Final Pathologists or Plasma venous andom mg/dL mg/dL ' Regio nal Lab: [address], [place] Blood Blood 12 mg/dL 6-20 Final Patholog ists venous Urea mg/dL ' Regional Nitrogen Lab: [address], [place] Blood Creatinin 1.1 0.7-1.2 Final Patho logists venous e mg/dL mg/dL ' Regional Lab: [address], [place] Blood Sodium 141 133-145 Final Patholog ists venous mmol/L mmol/L ' Regional Lab: [address], [place] Blood Potassium 4.1 3.3-5.1 Final Patho logists venous mmol/L mmol/L ' Regional Lab: [address], [place] Blood Chloride 105 96-108 Final Patholo gists venous mmol/L mmol/L ' Regional Lab: [address], [place] Blood Low Carbon 21 22-30 Final Pathologi sts venous Dioxide mmol/L mmol/L ' Regiona l Lab: [address], [place] Blood Anion Gap 15.0 8-16 Final Pathol ogists venous ' Regional Lab: [address], [place] Blood Calcium 9.5 8.6-10.4 Final Pathol ogists venous mg/dL mg/dL ' Regional Lab: [address], [place] Blood Total 6.9 5.9-8.4 Final Pathologi sts venous Protein gm/dL gm/dL ' Regiona l Lab: [address], [place] Blood Albumin 4.2 3.2-5.2 Final Patholo gists venous gm/dL gm/dL ' Regional Lab: [address], [place] Blood Globulin 2.7 2.2-3.7 Final Pathol ogists venous gm/dL gm/dL ' Regional Lab: [address], [place] Blood Alb/glob 1.6 1.0-2.3 Final Pathol ogists venous Ratio ' Regional Lab: [address], [place] Blood Bilirubin 0.2 0.0-1.0 Final Patho logists venous ,total mg/dL mg/dL ' Regional Lab: [address], [place] Blood AST/SGOT 25 U/l 0-37 U/l Final Patho logists venous ' Regional Lab: [address], [place] Blood ALT/SGPT 32 U/l 0-40 U/l Final Patho logists venous ' Regional Lab: [address], [place] Blood Alkaline 116 U/L 39-117 Final Pathol ogists venous Phosphatas U/L ' Jenn onal e Lab: [address], [place] Blood Glomerula 73 Final Pathol ogists venous r ' Regional Filtration Lab: [address], [place] 04/23/2015 CK Serum or Creatine 166 IU/L 24-195 Final Pathologists (Creatine plasma Phosphokin IU/L ' R egional Kinase), creatine ase Lab: [address] Total, kinase St, [place] Serum measuremen t (enzymatic activity/v olume) 01/28/2015 CMP, Serum Glomerular Glucose,r 96 mg/dL 70-105 Final Pathologists or Plasma filtration andom mg/dL ' R egional rate/1.73 Lab: [address], [place] m.predicte d by creatinine -based formula (mdrd) Glomerular Blood 13 mg/dL 6-20 Final Path ologists filtration Urea mg/dL ' Jenn onal rate/1.73 Nitrogen Lab: [address], [place] m.predicte d by creatinine -based formula (mdrd) Glomerular High Creatinin 1.5 0.7-1.2 Final P athologists filtration e mg/dL mg/dL ' Jenn onal rate/1.73 Lab: [address], [place] m.predicte d by creatinine -based formula (mdrd) Glomerular Sodium 142 133-145 Final Path ologists filtration mmol/L mmol/L ' Jenn onal rate/1.73 Lab: [address], [place] m.predicte d by creatinine -based formula (mdrd) Glomerular Potassium 4.4 3.3-5.1 Final P athologists filtration mmol/L mmol/L ' Jenn onal rate/1.73 Lab: [address], [place] m.predicte d by creatinine -based formula (mdrd) Glomerular Chloride 102 96-108 Final Pat hologists filtration mmol/L mmol/L ' Jenn onal rate/1.73 Lab: [address], [place] m.predicte d by creatinine -based formula (mdrd) Glomerular Carbon 25 22-30 Final Patho logists filtration Dioxide mmol/L mmol/L ' Reg ional rate/1.73 Lab: [address], [place] m.predicte d by creatinine -based formula (mdrd) Glomerular Anion Gap 15.0 8-16 Final Pa thologists filtration ' Jenn onal rate/1.73 Lab: [address], [place] m.predicte d by creatinine -based formula (mdrd) Glomerular Calcium 9.7 8.6-10.4 Final Pa thologists filtration mg/dL mg/dL ' Jenn onal rate/1.73 Lab: [address], [place] m.predicte d by creatinine -based formula (mdrd) Glomerular Total 7.4 5.9-8.4 Final Patho logists filtration Protein gm/dL gm/dL ' Reg ional rate/1.73 Lab: [address], [place] m.predicte d by creatinine -based formula (mdrd) Glomerular Albumin 4.8 3.2-5.2 Final Pat hologists filtration gm/dL gm/dL ' Jenn onal rate/1.73 Lab: [address], [place] m.predicte d by creatinine -based formula (mdrd) Glomerular Globulin 2.6 2.2-3.7 Final Pa thologists filtration gm/dL gm/dL ' Jenn onal rate/1.73 Lab: [address], [place] m.predicte d by creatinine -based formula (mdrd) Glomerular Alb/glob 1.8 1.0-2.3 Final Pa thologists filtration Ratio ' Jenn onal rate/1.73 Lab: [address], [place] m.predicte d by creatinine -based formula (mdrd) Glomerular Bilirubin 0.3 0.0-1.0 Final P athologists filtration ,total mg/dL mg/dL ' Jenn onal rate/1.73 Lab: [address], [place] m.predicte d by creatinine -based formula (mdrd) Glomerular AST/SGOT 22 U/l 0-37 U/l Final P athologists filtration ' Jenn onal rate/1.73 Lab: [address], [place] m.predicte d by creatinine -based formula (mdrd) Glomerular ALT/SGPT 22 U/l 0-40 U/l Final P athologists filtration ' Jenn onal rate/1.73 Lab: [address], [place] m.predicte d by creatinine -based formula (mdrd) Glomerular Alkaline 86 U/L 39-117 Final Pat hologists filtration Phosphatas U/L ' Regional rate/1.73 e Lab: [address], [place] m.predicte d by creatinine -based formula (mdrd) Glomerular Glomerula 48 Final Pa thologists filtration r ' Jenn onal rate/1.73 Filtration Lab : [address], [place] m.predicte d by creatinine -based formula (mdrd) Glomerular Results Path ologists filtration ' Jenn onal rate/1.73 Lab: [address], [place] m.predicte d by creatinine -based formula (mdrd) 01/28/2015 PSA, Serum Serum or Prostate 1.68 0.0-3.5 Fin al Pathologists or Plasma plasma Specific NG/mL NG/mL ' Reg ional prostate Antigen Lab: [address], [place] antigen measuremen t (mass/volu me) Serum or Results Pathol ogists plasma ' Regional prostate Lab: [address], [place] antigen measuremen [place] (mass/volu me) 01/28/2015 Culture, Results Pa thologists Urine ' Regional Lab: [address], [place] 01/28/2015 PSA, Serum Blood No Pa thologists or Plasma venous observatio ' R egional n Lab: [address] recorded. Dwight [place] 01/14/2015 CBC W/ Blood No Pathol ogists Auto Diff venous observatio ' R egional n Lab: [address] recorded. Dwight [place] 01/01/2015 Culture, Urine No Path ologists Urine + observatio ' Reg ional Sensitivit n Lab: [address] recorded. Dwight [place] 12/02/2014 Uc Uc comments Final [place] below Historical Backfill: [place] 10/24/2014 CMP, Serum Normal Glu 102 70-105 Final [place] or Plasma mg/dL mg/dL Histori iam Backfill: [place] Normal BUN,serum 17 mg/dL 6-20 Final [place] [facility] mg/dL Historical Backfill: [place] High Creat,ser 1.4 0.7-1.2 Final [place] um mg/dL mg/dL Historical Backfill: [place] Normal Na 140 133-145 Final [place] mmol/L mmol/L Historical Backfill: [place] Normal K 5.0 3.3-5.1 Final [place] mmol/L mmol/L Historical Backfill: [place] Normal Cl 101 96-108 Final [place] mmol/L mmol/L Historical Backfill: [place] Normal Co2 26 22-30 Final [place] mmol/L mmol/L Historical Backfill: [place] Normal Gap 13.0 8-16 Final [place] Historical Backfill: [place] Normal Ca 9.9 8.6-10.4 Final [place] mg/dL mg/dL Historical Backfill: [place] Normal Tot Prot 7.0 5.9-8.4 Final [place] gm/dL gm/dL Historical Backfill: [place] Normal Alb 4.7 3.2-5.2 Final [place] gm/dL gm/dL Historical Backfill: [place] Normal Glob 2.3 2.2-3.7 Final [place] gm/dL gm/dL Historical Backfill: [place] Normal A/g Ratio 2.0 1.0-2.3 Final [place] [facility] Historical Backfill: [place] Normal bili,T 0.2 0.0-1.0 Final [place] mg/dL mg/dL Historical Backfill: [place] Normal AST/SGOT 20 U/l 0-37 U/l Final [place] [facility] Historical Backfill: [place] Normal ALT/SGPT 18 U/l 0-40 U/l Final [place] Historical Backfill: [place] Normal Alk Phos 80 U/L 39-117 Final [place] U/L Historical Backfill: [place] Normal Gfr 52 Final [place] Historical Backfill: [place] 09/12/2014 CMP, Serum Normal Glu 81 mg/dL 70-105 Final [place] or Plasma mg/dL Histori iam Backfill: [place] Normal BUN,serum 13 mg/dL 6-20 Final [place] mg/dL Historical Backfill: [place] High Creat,ser 1.5 0.7-1.2 Final [place] um mg/dL mg/dL Historical Backfill: [place] Normal Na 139 133-145 Final [place] mmol/L mmol/L Historical Backfill: [place] Normal K 4.0 3.3-5.1 Final [place] mmol/L mmol/L Historical Backfill: [place] Normal Cl 99 96-108 Final [place] mmol/L mmol/L Historical Backfill: [place] Normal Co2 25 22-30 Final [place] mmol/L mmol/L Historical Backfill: [place] Normal Gap 15.0 8-16 Final [place] Historical Backfill: [place] Normal Ca 10.1 8.6-10.4 Final [place] mg/dL mg/dL Historical Backfill: [place] Normal Tot Prot 7.2 5.9-8.4 Final [place] gm/dL gm/dL Historical Backfill: [place] Normal Alb 4.7 3.2-5.2 Final [place] gm/dL gm/dL Historical Backfill: [place] Normal Glob 2.5 2.2-3.7 Final [place] gm/dL gm/dL Historical Backfill: [place] Normal A/g Ratio 1.9 1.0-2.3 Final [place] [facility] Historical Backfill: [place] Normal bili,T 0.5 0.0-1.0 Final [place] mg/dL mg/dL Historical Backfill: [place] Normal AST/SGOT 23 U/l 0-37 U/l Final [place] [facility] Historical Backfill: [place] Normal ALT/SGPT 20 U/l 0-40 U/l Final [place] [facility] Historical Backfill: [place] Normal Alk Phos 88 U/L 39-117 Final [place] U/L Historical Backfill: [place] Normal Gfr 48 Final [place] Historical Backfill: [place] 09/12/2014 Lipase, Normal Lipase 25 U/L 7-60 U/L Final [place] Serum or Historic al Plasma Backfill: [place] 09/12/2014 CBC/adiff/ Normal Wbc 5.9 4.5-11.0 Final [place] plt K/mcL K/mcL Historical Backfill: [place] Normal Rbc 4.90 4.50-5.9 Final [place] M/mcL 0 M/mcL Historica l Backfill: [place] Normal Hgb 14.7 13.5-16. Final [place] g/dL 5 g/dL Historical Backfill: [place] Normal Hct 43.5 % 41.0-55. Final [place] 0 % Historical Backfill: [place] Normal Mcv 88.7 fL 80.0-100 Final [place] .0 fL Historical Backfill: [place] Normal Mch 29.9 pg 26.0-34. Final [place] 0 pg Historical Backfill: [place] Normal Mchc 33.7 31.0-36. Final [place] g/dL 0 g/dL Historical Backfill: [place] Normal Rdw 14.5 % 11.5-14. Final [place] 5 % Historical Backfill: [place] Normal Plt CT 170 140-440 Final [place] K/mcL K/mcL Historical Backfill: [place] Normal Mpv 9.6 fL 7.4-10.4 Final [place] fL Historical Backfill: [place] Normal Gran % 52.6 % 38.0-78. Final [place] 0 % Historical Backfill: [place] Normal Lymph % 38.9 % 15.5-49. Final [place] 0 % Historical Backfill: [place] Normal [place] % 7.2 % 1.0-9.0 Final [place] % Historical Backfill: [place] Normal Eos % 0.9 % 0.0-7.0 Final [place] % Historical Backfill: [place] Normal Baso % 0.4 % 0.0-2.0 Final [place] % Historical Backfill: [place] Normal Gran # 3.1 1.8-8.0 Final [place] K/mcL K/mcL Historical Backfill: [place] Normal Lymph # 2.3 1.5-4.8 Final [place] K/mcL K/mcL Historical Backfill: [place] Normal [place] # 0.4 0.1-0.9 Final [place] K/mcL K/mcL Historical Backfill: [place] Normal Eos # 0.1 0.0-0.7 Final [place] K/mcL K/mcL Historical Backfill: [place] Normal Baso # 0.0 0.0-0.3 Final [place] K/mcL K/mcL Historical Backfill: [place] 09/12/2014 CBC/adiff/ Normal Wbc 6.4 4.5-11.0 Final [place] plt K/mcL K/mcL Historical Backfill: [place] Normal Rbc 5.08 4.50-5.9 Final [place] M/mcL 0 M/mcL Historica l Backfill: [place] Normal Hgb 15.4 13.5-16. Final [place] g/dL 5 g/dL Historical Backfill: [place] Normal Hct 45.8 % 41.0-55. Final [place] 0 % Historical Backfill: [place] Normal Mcv 90.1 fL 80.0-100 Final [place] .0 fL Historical Backfill: [place] Normal Mch 30.2 pg 26.0-34. Final [place] 0 pg Historical Backfill: [place] Normal Mchc 33.5 31.0-36. Final [place] g/dL 0 g/dL Historical Backfill: [place] Normal Rdw 14.1 % 11.5-14. Final [place] 5 % Historical Backfill: [place] Normal Plt CT 156 140-440 Final [place] K/mcL K/mcL Historical Backfill: [place] Normal Mpv 9.8 fL 7.4-10.4 Final [place] fL Historical Backfill: [place] Normal Gran % 56.5 % 38.0-78. Final [place] 0 % Historical Backfill: [place] Normal Lymph % 35.1 % 15.5-49. Final [place] 0 % Historical Backfill: [place] Normal [place] % 5.5 % 1.0-9.0 Final [place] % Historical Backfill: [place] Normal Eos % 2.3 % 0.0-7.0 Final [place] % Historical Backfill: [place] Normal Baso % 0.6 % 0.0-2.0 Final [place] % Historical Backfill: [place] Normal Gran # 3.6 1.8-8.0 Final [place] K/mcL K/mcL Historical Backfill: [place] Normal Lymph # 2.3 1.5-4.8 Final [place] K/mcL K/mcL Historical Backfill: [place] Normal [place] # 0.4 0.1-0.9 Final [place] K/mcL K/mcL Historical Backfill: [place] Normal Eos # 0.1 0.0-0.7 Final [place] K/mcL K/mcL Historical Backfill: [place] Normal Baso # 0.0 0.0-0.3 Final [place] K/mcL K/mcL Historical Backfill: [place] 08/20/2014 Tsh Normal Tsh 3.66 0.27-5.0 Final [place] uIU/mL 1 uIU/mL Historic al Backfill: [place] 08/20/2014 CBC/adiff/ Normal Wbc 4.7 4.5-11.0 Final [place] plt K/mcL K/mcL Historical Backfill: [place] Normal Rbc 4.74 4.50-5.9 Final [place] M/mcL 0 M/mcL Historica l Backfill: [place] Normal Hgb 14.3 13.5-16. Final [place] g/dL 5 g/dL Historical Backfill: [place] Normal Hct 42.0 % 41.0-55. Final [place] 0 % Historical Backfill: [place] Normal Mcv 88.6 fL 80.0-100 Final [place] .0 fL Historical Backfill: [place] Normal Mch 30.1 pg 26.0-34. Final [place] 0 pg Historical Backfill: [place] Normal Mchc 34.0 31.0-36. Final [place] g/dL 0 g/dL Historical Backfill: [place] Normal Rdw 14.0 % 11.5-14. Final [place] 5 % Historical Backfill: [place] Normal Plt [place] 244 140-440 Final [place] K/mcL K/mcL Historical Backfill: [place] Normal Mpv 8.8 fL 7.4-10.4 Final [place] fL Historical Backfill: [place] Normal Gran % 48.0 % 38.0-78. Final [place] 0 % Historical Backfill: [place] Normal Lymph % 39.3 % 15.5-49. Final [place] 0 % Historical Backfill: [place] Normal [place] % 7.3 % 1.0-9.0 Final [place] % Historical Backfill: [place] Normal Eos % 4.7 % 0.0-7.0 Final [place] % Historical Backfill: [place] Normal Baso % 0.7 % 0.0-2.0 Final [place] % Historical Backfill: [place] Normal Gran # 2.3 1.8-8.0 Final [place] K/mcL K/mcL Historical Backfill: [place] Normal Lymph # 1.9 1.5-4.8 Final [place] K/mcL K/mcL Historical Backfill: [place] Normal [place] # 0.3 0.1-0.9 Final [place] K/mcL K/mcL Historical Backfill: [place] Normal Eos # 0.2 0.0-0.7 Final [place] K/mcL K/mcL Historical Backfill: [place] Normal Baso # 0.0 0.0-0.3 Final [place] K/mcL K/mcL Historical Backfill: [place] 08/20/2014 Vitd Low Vitd 10.47 >=30 Final [place] NG/mL NG/mL Historical Backfill: [place] 08/20/2014 Lipid High Chol 224 <200 Final [place] Panel mg/dL mg/dL Historical Backfill: [place] High Trig 156 <150 Final [place] mg/dL mg/dL Historical Backfill: [place] Low Hdl 37 mg/dL >40 Final [place] mg/dL Historical Backfill: [place] High Ldl 156 see Final [place] mg/dL chart Historical mg/dL Backfill: [place] High Non HDL 187 LDL Final [place] Chol target+3 Historic al 0 Backfill: [place] 08/20/2014 CMP, Serum Normal Glu 96 mg/dL 70-105 Final [place] or Plasma mg/dL Histori iam Backfill: [place] Normal BUN,serum 14 mg/dL 6-20 Final [place] [facility] mg/dL Historical Backfill: [place] High Creat,ser 1.4 0.7-1.2 Final [place] um mg/dL mg/dL Historical Backfill: [place] Normal Na 144 133-145 Final [place] mmol/L mmol/L Historical Backfill: [place] Normal K 4.0 3.3-5.1 Final [place] mmol/L mmol/L Historical Backfill: [place] Normal Cl 101 96-108 Final [place] mmol/L mmol/L Historical Backfill: [place] Normal Co2 26 22-30 Final [place] mmol/L mmol/L Historical Backfill: [place] High Gap 17.0 8-16 Final [place] Historical Backfill: [place] Normal Ca 10.4 8.6-10.4 Final [place] mg/dL mg/dL Historical Backfill: [place] Normal Tot Prot 7.6 5.9-8.4 Final [place] gm/dL gm/dL Historical Backfill: [place] Normal Alb 4.4 3.2-5.2 Final [place] gm/dL gm/dL Historical Backfill: [place] Normal Glob 3.2 2.2-3.7 Final [place] gm/dL gm/dL Historical Backfill: [place] Normal A/g Ratio 1.4 1.0-2.3 Final [place] [facility] Historical Backfill: [place] Normal bili,T 0.3 0.0-1.0 Final [place] mg/dL mg/dL Historical Backfill: [place] Normal AST/SGOT 27 U/l 0-37 U/l Final [place] [facility] Historical Backfill: [place] Normal ALT/SGPT 24 U/l 0-40 U/l Final [place] Historical Backfill: [place] High Alk Phos 144 U/L 39-117 Final [place] U/L Historical Backfill: [place] Normal Gfr 52 Final [place] Historical Backfill: [place] Fecal Occult positive Occult Blood Blood, Stool Fecal No Occult observatio Blood, n Stool recorded. Past Encounters 05/19/2021 Acute Dermatitis; Chronic Constipation; Stress; Mild Persistent Asthma Daniel Fabian, PAC: [address] [facility] [address] [facility], [place] [phone], Ph. 04/15/2021 Pain of Bilateral Knee Joints; Infrapate llar Bursitis; Atopic Dermatitis; Increased Body Mass Index; HIV Screening Declined Daniel Fabian, PAC: [address] [place] [address], [place] [phone], Ph. 12/03/2020 Osteoarthritis of Knee; Chronic Kidney D isease Stage 3; Constipation; Hypercalcemia; Benign Hypertension; Hyperlipidemia; Mild Persistent Asthma; Schizoaffective Disorder Daniel Fabian, PAC: [address] [place] [phone], Ph. 11/27/2020 Benign Hypertension; Chronic Kidney Dise ase Stage 3; Hyperlipidemia Daniel Fabian, PAC: [address] [place] [address], [place] [phone], Ph. 11/17/2020 Acute Dermatitis; Benign Hypertension; C hronic Kidney Disease Stage 3; Hyperlipidemia; Planned Telephone Contact Daniel Fabian, PAC: [address] [place] [address], [place] [phone], Ph. 11/14/2020 Daniel Fabian, PAC: [address] [place] [address], [place] [phone], Ph. 04/08/2020 Mariusz Jonas, DMD: [address] [place] [address], [place] [phone], Ph. 04/02/2020 Mariusz Jonas, DMD: [address] [place] [address], [place] [phone], Ph. Social History Tobacco Smoking Status Former Smoker (1 pack per day) Vaccine List Vaccine Type COVID-19 vaccine, vector-nr, rS-Ad26, PF , 0.5 mL (Zane) 10.5 mL .5 influenza, injectable, quadrivalent, pre servative free 01/14/20150.5 mL 01/20/20160.5 mL 12/16/20160.5 mL 03/29/20180.5 mL pneumococcal polysaccharide PPV23 09/07/85812.5 mL Tdap 10/24/2014 zoster recombinant 01/16/20200.5 mL 0.5 mL Plan of Care Reminders Provider Appointments None recorded. Lab None recorded. Referral None recorded. Procedures None recorded. Surgeries None recorded. Imaging None recorded. Vitals 05/19/2021 10:40AM Office Visit 20 Height Weight BMI Blood Pressure 5 ft 6 in 162 lbs 8 oz 26.2 kg/m2 118/82 mm[Hg] 04/15/2021 04:20PM ER Followup Height Weight BMI Blood Pressure 5 ft 6 in 159 lbs 12.8 oz 25.8 kg/m2 124/78 mm[Hg] 12/03/2020 02:30PM Office Visit 20 Height Weight BMI Blood Pressure 5 ft 6 in 165 lbs 16 oz 26.8 kg/m2 116/72 mm[Hg] 11/17/2020 09:40AM Telephone Visit 20 Height 5 ft 6 in 11/14/2020 09:40AM Telephone Visit 20 Height 5 ft 6 in 04/08/2020 02:30PM Dental Restorative Height Blood Pressure 5 ft 6 in 138/81 mm[Hg] 04/02/2020 03:15PM Dental Exam/Limited Height Blood Pressure 5 ft 6 in 133/84 mm[Hg] 01/09/2020 01:20PM Office Visit 20 Height Weight BMI Blood Pressure 5 ft 6 in 157 lbs 16 oz 25.5 kg/m2 124/78 mm[Hg] 11/26/2019 10:00AM Telephone Visit 20 Height 5 ft 6 in 08/10/2019 03:00PM MA Visit Height 5 ft 6 in 08/10/2019 01:00PM Telephone Visit 20 Height 5 ft 6 in 06/28/2019 02:00PM Office Visit 20 Height Weight BMI Blood Pressure 5 ft 6 in 157 lbs 4 oz 25.4 kg/m2 118/74 mm[Hg] 06/11/2019 04:20PM Office Visit 20 Height Weight BMI Blood Pressure 5 ft 6 in 159 lbs 25.7 kg/m2 128/80 mm[Hg] 01/10/2019 02:00PM MA Visit Height 5 ft 6 in 01/09/2019 01:20PM Office Visit 20 Height Weight BMI Blood Pressure 5 ft 6 in 169 lbs 2 oz 27.3 kg/m2 134/82 mm[Hg] 10/26/2018 03:20PM Office Visit 20 Height Weight BMI Blood Pressure 5 ft 6 in 170 lbs 3.2 oz 27.5 kg/m2 124/86 mm[Hg] 09/07/2018 12:10PM Office Visit 20 Height Weight BMI Blood Pressure 5 ft 6 in 167 lbs 4 oz 27 kg/m2 112/74 mm[Hg] 08/11/2018 03:20PM Office Visit 20 Height Weight BMI Blood Pressure 5 ft 6 in 159 lbs 8 oz 25.7 kg/m2 120/78 mm[Hg] 03/29/2018 08:20AM Office Visit 20 Height Weight BMI Blood Pressure 5 ft 6 in 172 lbs 2 oz 27.8 kg/m2 110/72 mm[Hg] 01/17/2018 02:10PM Office Visit 20 Height Weight BMI Blood Pressure 5 ft 6 in 173 lbs 2 oz 27.9 kg/m2 117/64 mm[Hg] 12/27/2017 01:50PM Office Visit 20 Height Weight BMI Blood Pressure 5 ft 6 in 166 lbs 6 oz 26.9 kg/m2 110/64 mm[Hg] 12/16/2017 01:50PM Office Visit 20 Height Weight BMI Blood Pressure 5 ft 6 in 163 lbs 26.3 kg/m2 110/78 mm[Hg] 12/07/2017 04:00PM Office Visit 20 Height Weight BMI Blood Pressure 5 ft 6 in 162 lbs 8 oz 26.2 kg/m2 120/74 mm[Hg] 10/21/2017 03:45PM Office Visit Height Weight BMI Blood Pressure 5 ft 6 in 173 lbs 2 oz 27.9 kg/m2 138/80 mm[Hg] 07/15/2017 01:45PM Office Visit Height Weight BMI Blood Pressure 5 ft 6 in 154 lbs 6 oz 24.9 kg/m2 128/80 mm[Hg] 07/13/2017 11:45AM Office Visit Height Weight BMI Blood Pressure 5 ft 6 in 156 lbs 2 oz 25.2 kg/m2 120/78 mm[Hg] 07/01/2017 05:15PM Office Visit Height Weight BMI Blood Pressure 5 ft 6 in 160 lbs 16 oz 26 kg/m2 140/90 mm[Hg] 06/16/2017 05:15PM Office Visit Height Weight BMI Blood Pressure 5 ft 6 in 160 lbs 8 oz 25.9 kg/m2 130/80 mm[Hg] 06/01/2017 10:45AM Office Visit Height Weight BMI Blood Pressure 5 ft 6 in 158 lbs 8 oz 25.6 kg/m2 124/80 mm[Hg] 05/10/2017 09:45AM Office Visit Height Weight BMI Blood Pressure 5 ft 6 in 164 lbs 26.5 kg/m2 138/88 mm[Hg] 04/19/2017 11:45AM Office Visit Height Weight BMI Blood Pressure 5 ft 6 in 158 lbs 8 oz 25.6 kg/m2 140/80 mm[Hg] 04/15/2017 11:45AM Office Visit Height Weight BMI Blood Pressure 5 ft 6 in 159 lbs 2 oz 25.7 kg/m2 128/78 mm[Hg] 03/24/2017 04:30PM Office Visit Height Weight BMI Blood Pressure 5 ft 6 in 156 lbs 6 oz 25.2 kg/m2 124/80 mm[Hg] 03/08/2017 02:15PM Office Visit Height Weight BMI Blood Pressure 5 ft 6 in 159 lbs 2 oz 25.7 kg/m2 130/80 mm[Hg] 02/28/2017 02:00PM Office Visit Height Weight BMI Blood Pressure 5 ft 6 in 159 lbs 2 oz 25.7 kg/m2 136/70 mm[Hg] 02/25/2017 02:15PM Office Visit Height Weight BMI Blood Pressure 5 ft 6 in 155 lbs 2 oz 25 kg/m2 (1) 146/90 mm[H g] (2) 136/86 mm[Hg ] 02/09/2017 01:30PM Office Visit Height Weight BMI Blood Pressure 5 ft 6 in 161 lbs 2 oz 26 kg/m2 122/84 mm[Hg] 12/22/2016 02:00PM Office Visit Height Weight BMI Blood Pressure 5 ft 6 in 163 lbs 2 oz 26.3 kg/m2 118/78 mm[Hg] 12/16/2016 03:00PM Office Visit Height Weight BMI Blood Pressure 5 ft 6 in 162 lbs 8 oz 26.2 kg/m2 120/82 mm[Hg] 12/08/2016 03:15PM Procedure 30 Height Weight BMI Blood Pressure 5 ft 6 in 163 lbs 2 oz 26.3 kg/m2 120/82 mm[Hg] 12/06/2016 12:00PM Office Visit Height Weight BMI Blood Pressure 5 ft 6 in 165 lbs 8 oz 26.7 kg/m2 122/78 mm[Hg] 11/18/2016 04:30PM Office Visit Height Weight BMI Blood Pressure 5 ft 6 in 161 lbs 6 oz 26 kg/m2 130/88 mm[Hg] 10/20/2016 11:30AM Office Visit Height Weight BMI Blood Pressure 5 ft 6 in 159 lbs 2 oz 25.7 kg/m2 110/72 mm[Hg] 09/14/2016 02:15PM Office Visit Height Weight BMI Blood Pressure 5 ft 6 in 155 lbs 6 oz 25.1 kg/m2 100/70 mm[Hg] 08/31/2016 05:00PM Procedure 30 Height Weight BMI Blood Pressure 5 ft 6 in 155 lbs 6 oz 25.1 kg/m2 130/84 mm[Hg] 07/29/2016 02:45PM Office Visit Height Weight BMI Blood Pressure 5 ft 6 in 160 lbs 8 oz 25.9 kg/m2 120/82 mm[Hg] 06/03/2016 08:30AM Procedure 30 Height Weight BMI Blood Pressure 5 ft 6 in 177 lbs 28.6 kg/m2 124/76 mm[Hg] 04/21/2016 12:00PM Office Visit Height Weight BMI Blood Pressure 5 ft 6 in 176 lbs 4 oz 28.4 kg/m2 140/94 mm[Hg] 02/10/2016 11:15AM Office Visit Height Weight BMI Blood Pressure 5 ft 6 in 173 lbs 2 oz 27.9 kg/m2 122/88 mm[Hg] 01/21/2016 11:30AM Office Visit Height Weight BMI Blood Pressure 5 ft 6 in 174 lbs 2 oz 28.1 kg/m2 130/86 mm[Hg] 01/20/2016 11:00AM Office Visit Height Weight BMI Blood Pressure 5 ft 6 in 175 lbs 8 oz 28.3 kg/m2 132/82 mm[Hg] 11/28/2015 01:30PM Office Visit Height Weight BMI Blood Pressure 5 ft 6 in 165 lbs 6 oz 26.7 kg/m2 (1) 142/86 mm[H g] (2) 128/86 mm[Hg ] 11/21/2015 02:00PM New Patient Visit-Acute Height Weight BMI Blood Pressure 5 ft 6 in 162 lbs 6 oz 26.2 kg/m2 (1) 135/93 mm[H g] (2) 141/88 mm[Hg ] 11/11/2015 11:15AM SAME DAY APPOINTMENT Height Weight BMI Blood Pressure 5 ft 6 in 172 lbs 4 oz 27.8 kg/m2 147/91 mm[Hg] 10/09/2015 02:00PM Office Visit Height Weight BMI Blood Pressure 5 ft 6 in 172 lbs 27.8 kg/m2 (1) 140/93 mm[H g] (2) 130/88 mm[Hg ] 09/30/2015 10:45AM SAME DAY APPOINTMENT Height Weight BMI Blood Pressure 5 ft 6 in 172 lbs 2 oz 27.8 kg/m2 132/88 mm[Hg] 08/19/2015 08:30AM Office Visit Height Weight Blood Pressure 5 ft 6 in 122/82 mm[Hg] 08/08/2015 04:00PM SAME DAY APPOINTMENT Height Weight BMI Blood Pressure 5 ft 6 in 173 lbs 8 oz 28 kg/m2 140/90 mm[Hg] 06/26/2015 05:15PM Procedure 30 Height Weight BMI Blood Pressure 5 ft 6 in 175 lbs 2 oz 28.3 kg/m2 (1) 143/91 mm[H g] (2) 138/85 mm[Hg ] 06/25/2015 02:15PM Office Visit Height Weight BMI Blood Pressure 5 ft 6 in 171 lbs 4 oz 27.6 kg/m2 130/80 mm[Hg] 04/30/2015 10:00AM Office Visit Height Weight BMI Blood Pressure 5 ft 6 in 173 lbs 27.9 kg/m2 112/74 mm[Hg] 04/23/2015 10:00AM Hospital Discharge Follow Up Height Weight BMI Blood Pressure 5 ft 6 in 172 lbs 4 oz 27.8 kg/m2 130/86 mm[Hg] 04/08/2015 02:45PM ER Followup Height Weight BMI Blood Pressure 5 ft 6 in 177 lbs 28.6 kg/m2 130/88 mm[Hg] 03/26/2015 09:30AM Office Visit Height Weight BMI Blood Pressure 5 ft 6 in 166 lbs 9.6 oz 26.9 kg/m2 122/92 mm[Hg] 01/28/2015 09:15AM Office Visit Height Weight BMI Blood Pressure 5 ft 6 in 166 lbs 6 oz 26.9 kg/m2 120/80 mm[Hg] 01/14/2015 09:45AM Office Visit Height Weight BMI Blood Pressure 5 ft 6 in 164 lbs 2 oz 26.5 kg/m2 (1) 154/90 mm[H g] (2) 134/89 mm[Hg ] 01/01/2015 11:15AM Office Visit Height Weight BMI Blood Pressure 5 ft 6 in 163 lbs 3.2 oz 26.3 kg/m2 120/78 mm[Hg] 12/02/2014 Height Weight BMI Blood Pressure 5 ft 6 in 164 lbs 12.8 oz 26.60 kg/m2 115/72 mm[Hg] 11/26/2014 Height Weight BMI Blood Pressure 5 ft 6 in 163 lbs 6.4 oz 26.37 kg/m2 110/78 mm[Hg] 10/24/2014 Height Weight BMI Blood Pressure 5 ft 6 in 167 lbs 26.95 kg/m2 116/70 mm[Hg] 09/12/2014 Height Weight BMI Blood Pressure 5 ft 6 in 167 lbs 9.6 oz 27.05 kg/m2 (1) 140/90 mm[H g] (2) 147/92 mm[Hg ] 08/26/2014 Height Weight BMI Blood Pressure 5 ft 6 in 172 lbs 3.2 oz 27.79 kg/m2 (1) 140/96 mm[H g] (2) 150/96 mm[Hg ] 08/21/2014 Height Weight BMI Blood Pressure 5 ft 6 in 173 lbs 9.6 oz 28.02 kg/m2 140/110 mm[Hg] 08/20/2014 Weight Blood Pressure 171 lbs 12.8 oz 120/84 mm[Hg]
--- OUTSIDE RECORDS SUMMARY | 2021-07-17 06:11 | External Medical Summary ---
:1955 Author Care Team Providers Name Role Phone DANIEL CARTER PA-C Primary Care Provider [phone] Allergies Code Code System Name Reaction Severity Status Onset 5489 RxNorm Hydrocodone Active 6754 RxNorm Meperidine Active Medications Name Status Start Date Stop Date albuterol sulfate HFA 90 mcg/actuation aerosol Active Not available inhaler amlodipine 10 mg tablet Active Not avai lable atorvastatin 20 mg tablet Active Not av ailable buspirone 15 mg tablet Active Not avail able chlorhexidine gluconate 0.12 % mouthwash Active Not available dextroamphetamine ER 15 mg capsule,extended Active Not available release diazepam 5 mg tablet Active Not availab le diclofenac 1 % topical gel Active Not a vailable Latuda 120 mg tablet Active Not availab le lidocaine 5 % topical ointment Active 12/04/2020 N ot available APPLY TO AFFECTED AREA(S) BY TOPICAL ROUTE 2 TIMES DAILY NEE DED omeprazole 20 mg capsule,delayed release Active Not available oxycodone-acetaminophen 5 mg-325 mg tablet Active Not available promethazine 25 mg tablet Active Not av ailable quetiapine 200 mg tablet Active Not curtis ilable Symbicort 80 mcg-4.5 mcg/actuation HFA aerosol Active Not available inhaler tranexamic acid 650 mg tablet Active No t available trazodone 50 mg tablet Active Not avail able triamcinolone acetonide 0.025 % topical cream Active Not available triamcinolone acetonide 0.5 % topical cream Active Not available Problems Name Status Onset Date Source Chronic Hepatitis C Active 01/06/2021 Hypercalcemia Active 01/06/2021 Chronic Kidney Disease Stage 3 Active 01/06/2021 Osteoarthritis Active 01/06/2021 Bilateral Osteoarthritis of Knees Active 01/08/2021 Procedures Date Name Performed by 02/19/2021 Genicular Nerve Ablation, Knee (Surg) In formation not available 01/15/2021 Genicular Nerve Ablation, Knee (Surg) In formation not available 02/10/2020 Total Knee Arthroplasty Information not available Notes: left 09/10/2019 Total Knee Arthroplasty Information not available Notes: right Results Lab Results Date Name Specimen Result Interpretation Description Value Range Status Address 02/13/2021 Sars - Covid SWABN [id number] not not F inal [place] 2 Mfm detected detected [facility] (Lab): [address] [facility] SWABN Header Final [place] [id number] [facility] (Lab): [address] [facility] 02/05/2021 Sars - Covid SWABN [id number] not not F inal [place] 2 Mfm detected detected [facility] Center (Lab): [address] [facility] [place] SWABN Header Final [place] [id number] [facility] (Lab): [address] [facility] 01/12/2021 SARS CoV 2 SWABN [id number] not not Fin al [place] RNA detected detected Medica l (COVID-19), Jay DUNEN, form presser-PCR, (Lab ): Res[facility] [address] [facility] SWABN Header Final [place] [id number] [facility] Center (Lab): [address] [facility] Past Encounters 03/18/2021 Bilateral Osteoarthritis of Knees Bryan Simon, PHYSICIAN GENERAL PRACTICE: [address] [place] [address], Ph. 02/19/2021 Chay Garnett, PHYSICIAN GENERAL PRACTICE: [address] [facility] [place] [address], Ph. 01/29/2021 Bilateral Osteoarthritis of Knees Jeff Last, PHYSICIAN GENERAL PRACTICE: [address] [place] [address], Ph. 01/15/2021 Bryan Simon, PHYSICIAN GENERAL PRACTICE: [address] [place] [address], Ph. 01/08/2021 Bilateral Osteoarthritis of Knees Jeff Last, PHYSICIAN GENERAL PRACTICE: [address] [place] [address], Ph. Social History Tobacco Smoking Status Former Smoker Notes: quit 35 years ago Vaccine List Notes: COVID-19 J&J vaccine + booster Plan of Care Patient Goals 1. Pt will contact IPC if pain continue s 2. Pt advised to monitor swelling and co ntact PCP or ED if it continues 3. Pt advised to continue prescribed dic lofenac as prescribed 4. Pt advised to rest, ice, and elevate knee while healing continues 5. Pt advised to continue prescribed phy sical therapy 1. Pt will be scheduled for Left Knee G enicular Nerve RFA 2. Pt will return to clinic 2-[address] procedure for follow up 1. Pt will be scheduled for Right Knee Genicular Nerve RFA 2. Pt will return to clinic 3-[address] procedure for follow up and assessment for Left Knee RFA as appropriate Reminders Provider Appointments None recorded. Lab None recorded. Referral None recorded. Procedures None recorded. Surgeries None recorded. Imaging None recorded. Vitals 03/18/2021 12:45PM [facility]PC Follow-up 15 (Estab Pt) Blood Pressure 115/82 mm[Hg] 01/29/2021 10:00AM [facility] Follow-up 15 (Estab Pt) Blood Pressure 140/94 mm[Hg] 01/08/2021 09:00AM [facility] Pain Consult- NEW PT Blood Pressure 140/80 mm[Hg]
--- OUTSIDE RECORDS SUMMARY | 2021-07-17 06:11 | External Medical Summary | Encounter Summary ---
:1955 Author Care Team Providers Name Role Phone Kvng Fabian PA-C Primary Care Provider [phone] Lili Gong C4 PLANNER Referring Provider [phone] Reason for Visit Acute dermatitis; Senile purpura Assessment and Plan 1. Acute dermatitis Apply the clobetasol as discussed, no l onger than 7 days in a row. Apply a good moisturizing lotion after bathing. Follo w-up in 1-2 weeks if not improving, otherwise as needed. clobetasol 0.05 % topical ointment 2. Chronic constipation Start MiraLax once daily. High-fiber di et. Stay well hydrated. Take it daily 30 minutes walk. Follow-up in 1 month. Miralax 17 gram/dose oral powder 3. Stress We have used a screening tool today abeba t shows you may need resources to support your mental health. We have discussed th is today and next steps. You have been referred to a Behavioral Health Provider to you address your needs. Your referral from today will be listed below. Below a re some websites of community resources for you to reference. You should hear from o ur schedulers within 2 weeks. Please call us at [phone] if you have not heard by then or have any additional questions. Resource Sites Aunt Hina: https://nikunj bahEasyLink/ The Fig Tree: http://www.thefigtree.org/ 2-1-1: http ://www.211.org/ [facility]: https://www.Blottr.com/program s/manbiqqlm-qroxlkjo-ntin/ Arpan/Nawaf Resource List: [email or web address].[email or web address]/[email or web address] 4. Mild persistent asthma Ventolin HFA 90 mcg/actuation aerosol inhaler Discussion Note: None recorded.Patient educational handouts: No information available. Plan of Care Reminders Provider Appointments Office Visit 07/29/2021 3:20PM ALEJANDRA Alexandra Lab None recorded. Referral None recorded. Procedures None recorded. Surgeries None recorded. Imaging None recorded. Medications Name Start Date albuterol sulfate HFA 90 mcg/actuation aerosol inhaler Inhale 1-2 puff(s) EVERY 4 HOURS by inhalation route as needed. amlodipine 10 mg tablet TAKE 1 TABLET BY MOUTH EVERY DAY atorvastatin 20 mg tablet TAKE 1 TABLET BY MOUTH EVERY DAY buspirone 15 mg tablet Take 1 tablet every day by oral route at bedtime. cephalexin 500 mg capsule chlorhexidine gluconate 0.12 % mouthwash clobetasol 0.05 % topical ointment APPLY A THIN LAYER TO THE AFFECTED AREA (S) BY TOPICAL ROUTE BID PRN. Do not use for more than 7 consecutive days. dextroamphetamine ER 15 mg capsule,extended release Take one tablet by mouth at 7 am and the other at 1 p m daily diazepam 5 mg tablet Take 1 tablet 3 times a day by oral route. Latuda 120 mg tablet Take 1 tablet every day by oral route at bedtime. Miralax 17 gram/dose oral powder Take 17 g in 8 oz of water or juice once daily as nee ded for constipation. Prescription - Prior Authorization Request quetiapine 200 mg tablet sulfamethoxazole 800 mg-trimethoprim 160 mg tablet Symbicort 80 mcg-4.5 mcg/actuation HFA aerosol inhaler Inhale 2 puffs twice a day by inhalation route as nee ded. tramadol 50 mg tablet trazodone 50 mg tablet Take 1 tablet every day by oral route at bedtime. Notes: Medications reviewed with Pt on 05/19/21 CR Medications Administered None recorded. Vitals Height Weight BMI Blood Pressure 5 ft 6 in 162 lbs 8 oz 26.2 kg/m2 118/82 mm[Hg] Results Lab Results None recorded. 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 Hyperlipidemia Active 01/21/2016 Acute Dermatitis Active 02/10/2016 Senile Purpura Active 06/01/2017 History of Tobacco Use Active 06/01/2017 Chronic Kidney Disease Stage 3 Active 03/30/2018 Mild Persistent Asthma Active 01/09/2020 Chronic Hepatitis C Active Encounter Vitamin D Deficiency Active Encounter Schizoaffective Disorder Active History Anxiety Active History Attention Deficit Hyperactivity Disorder Active History Benign Hypertension Active Encounter Bilateral Inguinal Hernia Active Encoun ter Hernia of Anterior Abdominal Wall Active Encounter Primary Erectile Dysfunction Active Enc ounter Osteoarthritis of Knee Active Encounter Altered Mental Status Active Encounter Total Knee Replacement Active Procedures Date Name Performed by 04/11/2020 Knee Arthroscopy/surgery Information not available Notes: Right 02/10/2020 Total Replacement of Left Knee Joint Inf ormation not available 10/01/2019 Total Replacement of Right Knee Joint In formation not available 05/16/2017 Knee Surgery Information not avai lable Notes: left knee surgery 06/09/2014 Vasectomy Information not avai lable Vaccine List Vaccine Type COVID-19 vaccine, vector-nr, rS-Ad26, PF , 0.5 mL (ShopItToMe) 10.5 mL 10.5 influenza, injectable, quadrivalent, pre servative free 01/14/20150.5 mL 01/20/20160.5 mL 12/16/20160.5 mL 03/29/20180.5 mL pneumococcal polysaccharide PPV23 12/16/20160.5 mL Tdap 10/24/2014 zoster recombinant 01/16/20200.5 mL 0.5 mL Social History Tobacco Smoking Status Former Smoker (1 pack per day) Have you had all your required N vaccines including measles and the flu shot? Do you have high or low blood Y pressure? Do you have a pacemaker or N artificial heart valve implant? Can you walk up a flight of N stairs without stopping to rest? How much tobacco do you chew? none What is the highest level of High school diploma or GED school that you have finished? Is blood transfusion Y acceptable in an emergency? Are you HIV positive? If yes, N cd4 count Viral load Have you ever had surgery, Y Notes: Jimenez relacement radiation treatment, or chemo 2019 therapy for a tumor, or any other condition? Are you deaf or do you have N serious difficulty hearing? Do you use your seat belt or Y car seat routinely? Have you had any serious Y illness or operation? Smoke alarm in home Y At what age did you start 18 smoking tobacco? Are there any guns present in N your home? Do you have difficulty N dressing or bathing? Do you or have you had TB? N What is the highest grade or [id number] level of school you have completed or the highest degree you have received? How many children do you have? 2 Notes: Son and daughter Have you ever taken oral or IV N bisphosphonates? Do you have any STD's? If yes, N what type? Has tobacco cessation Y counseling been provided? Have you ever had Hepatitis? Y Notes: In nactive If yes, A, B, or C (samish)? Have you ever had Jaundice? In the 14 days before symptom N onset, have you had close contact with a person who is under investigation for COVID-19 while that person was ill? Do you have difficulty doing N errands alone? What was the date of your most 05/19/2021 recent tobacco screening? Do you have an advanced N directive? Preferred Pharmacy [facility] Do you have any inflammatory Y disease such as arthritis? Do you have any history of N head and/or neck radiation? What is your exercise level? Occasional Cannabis Use? N What is the fluoride status of Non-fluoridated your home? Illicit drugs N Hookah use? N Do you have artificial Y Notes: Knee rep lacement joints/prosthesis? 02/2020 What type of diet are you REGULAR following? Do you have difficulty walking N or climbing stairs? Are you currently employed? N Are you able to care for Y yourself? Have you ever bled excessively Y after being injured? Are you under a physician's Y care? Physician/Doctor's Name KAREN Wren What is your relationship Single status? Are you currently in school? N What is your level of alcohol None consumption? Have you been to an area known N to be high risk for COVID-19? Do you have blood disorders, N such as anemia, leukemia? Are you passively exposed to N smoke? Have you ever been treated for N osteoporosis? Do you or have you ever used N any other forms of tobacco or nicotine? Seat belts used routinely Y Have you recently or are you N planning to travel to an area with Zika virus? Have you had any recent N travel? Are you using any street N drugs? Are you blind or do you have N difficulty seeing? Are you diabetic? If yes, what N type? Last checked glucose? Do you have smoke and carbon Y monoxide detectors in your home? Have you been treated for or N told you might have heart disease? Do you use sunscreen Y routinely? Do you use any illicit or N Notes: Quit at age 40 recreational drugs? Have there been any changes to N your family or social situation? How many years have you smoked 8 Notes: Quit at age 26 tobacco? In the 14 days before symptom N onset, have you had close contact with a laboratory-confirmed COVID-19 while that case was ill? Do you use marijuana? How Y much? When was your last dental Notes: Do no t remember. cleaning? On what date was tobacco 05/19/2021 cessation counseling provided? Do you have asthma? Y Are you sexually active? Y Do you have difficulty N concentrating, remembering or making decisions? Do you use protection during No sex? What is your current pack 30ormorepackyears years? What is your level of caffeine Moderate consumption? Do you consume alcoholic N beverages? What is your current work Otherwise unemployed but situation? not seeking work (ex. student/ retired/ disabled/ unpaid primary medicare nurse Do you feel stressed (tense, [id number] restless, nervous, or anxious, or unable to sleep at night)? Do you have epilepsy or N seizure disorders? Are you aware of any heart N murmurs? Family History Relation Problem Onset Age of Age Notes Brother Attention deficit hyperactivity (No Information) N/A (No Notes) disorder Sister Attention deficit hyperactivity (No Information) N/A (No Notes) disorder Mother Malignant tumor of pancreas (No Information) N/A Father Malignant tumor of lung (No Information) 40 Functional Status No Impairment. Past Encounters 05/19/2021 Acute Dermatitis; Chronic Constipation; Stress; Mild Persistent Asthma Kvng Fabian, PAC: [address] [facility] [address], [place] [address], Ph. History of Present Illness Note: <div>Bartolome presents today to f/u on his skin condition. Pt [facility] also [facility], but not to [place] or [place]. ~Isabelle Oro CMA (AAMA)</div><div><b r></div><div>Patient presents for follow-up on atopic dermatitis. He feels like the triamcinolone has not been working recently and wonders if he is having a side effect to the medication. We discussed appropriate frequency and duration of topical steroids. We discuss management of atopic dermatitis including daily moisturizing lotion following bathing.</div><div>
</div><div>Patient complains of constipation, which has been a chronic problem for him. He believes this is due to his psych medications. Has been particularly bothering him the last week orso. he finally took some milk of magnesium and then had a large bowel movement. Has never tried MiraLax. Had normal screening colonoscopy in 2017.</div><div>
</div><div>Kvng Fabian PA-C</div><div>
</div> Review of Systems Comprehensive Adult Problem ROS Reported By: Patient Constitutional: Constitutional: no fever, fa tigue Cardiovascular: Cardiovascular: no chest gutierrez n Respiratory: Respiratory: normal respirat ion Gastrointestinal: GI: no nausea, no vomiting, no diarrhea, constipation Musculoskeletal: Musculoskeletal: myalgia, li mited motion Skin: Skin: pain, itchiness, redne ss, rash Neurological symptoms: Neuro: no headache Physical Exam General Adult Exam - Female Reported By: Patient Constitutional: Level of Distress: NAD Psychiatric: Mental Status: active and al ert. Orientation: to time, to place, to person Lungs: Respiratory effort: no dyspn ea Neurologic: Cranial Nerves: grossly inta ct Skin: Inspection and palpation: ; multiple areas of dry, erythematous patches on bilateral arms, t runk, and bilateral legs
[2021-07-17] MEDS ORDERED: KETAMINE 50 MG/ML Syringe (ANEST) IV ONE (12:07)
[2021-07-17] MEDS ORDERED: MAGNESIUM SULFATE 2 GM/50 ML BAG IV ONE (12:07)
[2021-07-17] MEDS ORDERED: PROPOFOL 200 MG/20 ML VIAL IV ONE (12:07)
[2021-07-17] MEDS ORDERED: LIDOCAINE HCL/PF 100 MG/5 ML SYRINGE IV ONE (12:07)
[2021-07-17] MEDS ORDERED: ONDANSETRON 4 MG/2 ML VIAL ONE (12:07)
[2021-07-17] MEDS ORDERED: TRANEXAMIC ACID 1,000 MG/10 ML VIAL ONE (12:07)
[2021-07-17] MEDS ORDERED: DEXAMETHASONE 10 MG/ML VIAL ONE (12:07)
[2021-07-17] MEDS ORDERED: GLYCOPYRROLATE 0.2 MG/ML VIAL IV ONE (12:07)
[2021-07-17] MEDS ORDERED: ROPIVACAINE HCL/PF 20 ML VIAL IJ ONE (12:07)
[2021-07-17] MEDS ORDERED: IPRATROPIUM/ALBUTEROL 3 ML AMPUL.NEB NEB PRN (13:14)
[2021-07-17] MEDS ORDERED: METHOCARBAMOL 1,000 MG/10 ML VIAL IV PRN (13:14)
[2021-07-17] MEDS ORDERED: BENZOCAINE/MENTHOL 1 LOZENGE PO PRN ×2 (13:14→13:37)
[2021-07-17] MEDS ORDERED: ONDANSETRON 4 MG/2 ML VIAL IV PRN ×2 (13:14→13:37)
[2021-07-17] MEDS ORDERED: fentaNYL 100 MCG/2 ML VIAL IV PRN (13:14)
[2021-07-17] MEDS ORDERED: ACETAMINOPHEN 1,000 MG/100 ML BAG IV ONE (13:14)
[2021-07-17] MEDS ORDERED: LACTATED RINGERS 250 ML IV PRN (13:14)
[2021-07-17] MEDS ORDERED: LACTATED RINGERS 1,000 ML IV SCH (13:15)
[2021-07-17] MEDS ORDERED: VANCOMYCIN 1 GM VIAL TOPICAL SCH (13:30)
--- NOTE | 2021-07-17 13:36 | Discharge Plan ---
Discharge Instructions - TKA Patient Instructions Total Knee Protocol: For Total Knee: Start ROM MALINA with stationary bike or rocking chair. Work on gaining full extension of knee. Posterior dislocation precautions provided. Hip abductor strengthening and gait training instructions provided. Apply Cryocuff as instructed. Dressing Care: May shower in 2 days and Aquacel Ag - leave on for 5 days Discharge Plan Patient/Caregiver Discharge Instructions Activity: ambulate only with your walker and as per physical therapy Diet: Regular Diet Prescriptions: New aspirin [Ecotrin Low Strength] 81 mg tablet,delayed release (DR/EC) 81 mg PO BID Qty: 60 0RF oxycodone-acetaminophen 5-325 mg tablet 1 - 2 tab PO Q4H MDD 8 PRN (Reason: pain) Qty: 60 0RF docusate sodium 100 mg capsule 100 mg PO BID Qty: 60 0RF No Action dextroamphetamine sulfate 15 mg capsule, extended release 15 mg PO TID@07,13,15 0RF Label Comments: 15 mg PO On QDAY 7 am and the other at 1 pm quetiapine 100 mg tablet 200 mg PO HS 0RF Ventolin HFA 90 mcg/actuation HFA aerosol inhaler See Rx Instructions INHALATION Q4HP PRN (Reason: sob) 0RF Label Comments: 1-2 INHALATION Q4H PRN; Rx Instructions: 1-2 INHALATION Q4H PRN; lurasidone 80 mg tablet 120 mg PO HS 0RF Rx Instructions: administer with food (at least 350 calories) amlodipine 10 MG tablet 10 mg PO DAILY 0RF diazepam 5 MG tablet 5 mg PO TID@07,13,15 0RF atorvastatin 20 MG tablet 20 mg PO DAILY 0RF polyethylene glycol 3350 17 gram/dose Powder 17 g PO DAILYP PRN (Reason: Constipation) 0RF buspirone 15 mg Tablet 15 mg PO HS 0RF cyanocobalamin (vitamin B-12) 1,000 mcg Tablet 1,000 mcg PO DAILY 0RF Other Ambulatory Orders: CPM Discharge Order (ONCE) Location: None Selected Ordered By: Onesimo Downs Physical Therapy DC - TKA (Routine) Location: None Selected Ordered By: Onesimo Downs Toilet Riser Discharge Order (ONCE) Location: None Selected Ordered By: Onesimo Downs Walker (ONCE) Location: None Selected Ordered By: Onesimo Downs Follow Up Plan Follow up with: Jaylan Villalpando MD [Physician] - Kvng Fabian [Primary Care Provider] - Patient Disposition: Home, Self-Care Prognosis: Good Rehab Potential: Good I certify that the patient requires SNF services: No Overall status at discharge: patient is progressing back to baseline Discharge Orders: Discharge Order (Routine); Ordered 07/18/21 Ordered By: Onesimo Downs
[2021-07-17] MEDS ORDERED: TEMAZEPAM 15 MG CAPSULE PO PRN (13:37)
[2021-07-17] MEDS ORDERED: HYDROcodone/APAP 10/325MG TABLET PO PRN (13:37)
[2021-07-17] MEDS ORDERED: BISACODYL 10 MG SUPP.RECT PR PRN (13:37)
[2021-07-17] MEDS ORDERED: FLEETS ADULT ENEMA PR PRN (13:37)
[2021-07-17] MEDS ORDERED: MAGNESIUM HYDROXIDE 30 ML ORAL.SUSP PO PRN (13:37)
[2021-07-17] MEDS ORDERED: TRANEXAMIC ACID 1,000 MG/10 ML VIAL IV ONE (13:37)
[2021-07-17] MEDS ORDERED: ACETAMINOPHEN 325 MG TABLET PO PRN (13:37)
[2021-07-17] MEDS ORDERED: POLYETHYLENE GLYCOL 3350 17 GM PACKET PO PRN (13:37)
--- NOTE | 2021-07-17 13:37 | Brief Operative Note ---
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
[2021-07-17] MEDS ORDERED: [UNRECOGNIZED DRUG - OTHER] PO PRN (13:39)
[2021-07-17] MEDS ORDERED: ALBUTEROL SULFATE 200 PUFF INHALER INH PRN (13:39)
[2021-07-17] MEDS ORDERED: HYDROmorphone 0.5 MG/0.5 ML SYRINGE IV PRN (13:42)
--- NOTE | 2021-07-17 14:23 | XRay Report ---
INDICATION: post op. Revision right total knee arthroplasty TECHNIQUE: AP and crosstable lateral COMPARISON: Previous examination dated 06/10/2021 FINDINGS:Previous right total knee arthroplasty. Prosthetic components are in anatomic positions. There is postsurgical soft tissue and intra-articular gas. IMPRESSION: Right total knee arthroplasty revision Interpreted and Authenticated by: Chay Marino 07/17/21
[2021-07-17] MEDS: 0.9 % SODIUM CHLORIDE 10 ML SYRINGE IV SCH ×2 (14:35→21:27)
--- NOTE | 2021-07-17 15:45 | Operative Note ---
DATE OF OPERATION: 07/17/2021 PREOPERATIVE DIAGNOSIS: Right knee with infection. POSTOPERATIVE DIAGNOSIS: Right knee with infection. PROCEDURE: Right total knee revision of all components. SURGEON: Jaylan Villalpando M.D. BANQUET WAITER/WAITRESS: Onesimo Downs PA-C. The PA's assistance was required for the safe and efficient completion of the entire case. This provider's expertise and technical skill were required throughout the case. The PA assisted with preoperative coordination, intraoperative retraction, wound closure, dressing and splint application, as well as postoperative documentation and care coordination. ANESTHESIA: General endotracheal anesthesia. IMPLANTS: [place] implants. FINDINGS: Synovitis without white blood cells in the synovium. COMPLICATIONS: None. ESTIMATED BLOOD LOSS: 40 mL. TOURNIQUET TIME: 56 minutes. SPECIMENS: Specimens sent to Pathology for high-powered barrett. CONDITION: Stable. DISPOSITION: PACU. DESCRIPTION OF PROCEDURE: The patient was brought to the operating room, put to sleep with general LMA anesthesia. Once asleep, the patient had the right leg sterilely prepped and draped in the usual sterile fashion. After this was done, a timeout was performed, confirming the operative site by initials, consent form, and x-ray. We confirmed preoperative antibiotics and tranexamic acid had been given. We were able to then expose the joint, showing severe scar tissue throughout. There was very minimal fluid from the knee. No large amounts of purulence. We entered the knee through the prior scar and performed a subperiosteal elevation medially and removal of scar tissue and a general synovectomy of the joint. Once done, we then removed the femoral component where there was bony surfaces impregnated on the cement with minimal bone loss. We then removed the tibial baseplate where there was also some well-fixed tibia, but it was removed because of the infection and the CRP and preoperative labs and the aspirate. With these findings, we then refreshed the cut on the tibia. We placed the tibial baseplate, size 5. We resurfaced the femur with a size 4 femur, realigning the femur. We allowed the cement to dry before implanting the poly liner. We placed the poly liner, a size 13 deep dish and revised the patella. The patella had soft tissue grown up around, which was removed. We irrigated thoroughly of all components. Once the cement had dried, we removed any excess cement. The cement was impregnated with vancomycin. We then closed the midvastus approach and thoroughly irrigated. We deflated the tourniquet at about 58 minutes. This was a complete revision, first stage. We closed the midvastus approach and performed this with two #1 Stratafix. The skin was closed with Stratafix and adhesive closure. The patient tolerated this well. There were no complications. RB[facility]:elkin Job ID: [id number] Doc ID: [id number] Jaylan Villalpando MD
[2021-07-17] MEDS: DIAZEPAM 5 MG TABLET PO SCH (15:55)
[2021-07-17] MEDS: LURASIDONE 80 MG PO SCH ×3 (15:55→20:58)
[2021-07-17] MEDS: 0.45 % SODIUM CHLORIDE 1,000 ML IV SCH (15:55)
[2021-07-17] MEDS: DEXTROAMPHETAMINE SULFATE 15 MG PO SCH (15:55)
[2021-07-17] MEDS: DOCUSATE SODIUM 100 MG CAPSULE PO SCH (20:57)
[2021-07-17] MEDS ORDERED: SENNOSIDES 1 TABLET PO SCH (21:00)
[2021-07-17] MEDS ORDERED: busPIRone 15 MG TABLET PO SCH (21:00)
[2021-07-17] MEDS ORDERED: QUEtiapine 100 MG TABLET PO SCH (21:00)
[2021-07-18] MEDS: 0.45 % SODIUM CHLORIDE 1,000 ML IV SCH ×2 (00:17→08:48)
[2021-07-18] MEDS: 0.9 % SODIUM CHLORIDE 10 ML SYRINGE IV SCH ×2 (05:58→12:58)
[2021-07-18] MEDS: DIAZEPAM 5 MG TABLET PO SCH ×2 (07:30→12:57)
[2021-07-18] MEDS: DOCUSATE SODIUM 100 MG CAPSULE PO SCH (08:25)
[2021-07-18] MEDS: DEXTROAMPHETAMINE SULFATE 15 MG PO SCH ×2 (08:26→12:57)
[2021-07-18] MEDS ORDERED: CYANOCOBALAMIN (VITAMIN B-12) 500 MCG TABLET PO SCH (09:00)
[2021-07-18] MEDS ORDERED: amLODIPine 10 MG TABLET PO SCH (09:00)
[2021-07-18] MEDS ORDERED: CYANOCOBALAMIN (VITAMIN B-12) 1,000 MCG TABLET PO SCH (09:00)
[2021-07-18] MEDS ORDERED: ATORVASTATIN 20 MG TABLET PO SCH (09:00)
[2021-07-18] MEDS ORDERED: ceFAZolin 1 GM VIAL IV SCH (10:30)
[2021-07-18] MEDS ORDERED: ASPIRIN 325 MG ENTERIC COATED TABLET PO SCH (21:00)
== END 2021-07-18 13:40 | disposition home or self-care (01) | DRG 468 ==
LOC: MEDSUR 06:08 → EDSTATUS 11:05
PROVIDERS: ADMIT Orthopaedic Surgery; ATTEND Orthopaedic Surgery